=== PATIENT | male | born 1980 | race Caucasian/White ===

== ENCOUNTER 2017-06-15 12:05 | Emergency (ER) | payer OTHER ==
[2017-06-15 12:48] VITALS: BP 133/79; PULSE 82; RESP 18; TEMP 98.6
[2017-06-15] MEDS ORDERED: IBUPROFEN 600 MG TAB PO STA (13:15)
--- NOTE | 2017-06-15 13:50 | XR ---
EXAM TYPE: LUMBAR SPINE X RAY SERIES COMPARISON: NONE HISTORY: Back pain TECHNIQUE: Three views are submitted. FINDINGS: Alignment is anatomic. The pedicles are intact. The transverse processes are intact. There is no s pondylolysis or spondylolisthesis. Vertebral body height maintained. IMPRESSION: 1. No acute process. If there is concern for disc herniation correlate with MRI.
--- NOTE | 2017-06-15 13:52 | ED ---
Back Pain HPI - General Chief Complaint: Back Pain/Injury Stated Complaint: [facility] back pain Time Seen by Provider: 06/15/17 13:09 Source: patient Limitations: no limitations - History of Present Illness Initial Comments: 36-year-old male patient presented to emergency department today for evaluation of acute low back pain. Patient states that around 10:30 this morning he was at work in the back of a semi-he says he stepped out and landed hard on both of his feet. Patient states that since then he has been having pain in his lower back. He states the pain is sharp, states it radiates down his right leg. He denies any numbness or tingling to his lower extremities. Denies any loss of bowel or bladder control. Denies any saddle anesthesia. Patient denies any headache, neck pain, back pain, chest pain, shortness of breath, dizziness, weakness, abdominal pain, nausea, vomiting, or difficulties with bowel movements or urination. Patient has had lumbar laminectomy in April of last year. - Related Data Home Medications Medication Instructions Recorded Confirmed HYDROcodone/APAP 10-325MG [[place] 1 each PO Q6H 01/23/15 01/23/15 10] Previous Rx's Medication Instructions Recorded Ibuprofen [Motrin] 600 mg PO Q8HR PRN #20 tab 01/24/15 Allergies Allergy/AdvReac Type Severity Reaction Status Date / Time No Known Allergies Allergy Verified 06/15/17 12:48 Review of Systems ROS Statement: Those systems with pertinent positive or pertinent negative responses have been documented in the HPI. ROS Other: All systems not noted in ROS Statement are negative. Past Medical History Past Medical History: No Reported History History of Any Multi-Drug Resistant Organisms: None Reported Past Surgical History: No Surgical Hx Reported Additional Past Surgical History / Comment(s): discectomy May 04 2016 Past Psychological History: No Psychological Hx Reported Smoking Status: Current every day smoker Past Alcohol Use History: None Reported Past Drug Use History: None Reported General Exam Limitations: no limitations General appearance: alert, in no apparent distress Head exam: Present: atraumatic, normocephalic, normal inspection Eye exam: Present: normal appearance, PERRL, EOMI. Absent: scleral icterus, conjunctival injection, periorbital swelling ENT exam: Present: normal exam, mucous membranes moist Neck exam: Present: normal inspection, full ROM, other (Nontender, no step-off, no deformity to firm midline palpation of the posterior cervical spine. Full range of motion without pain or limitation.). Absent: tenderness, meningismus, lymphadenopathy Respiratory exam: Present: normal lung sounds bilaterally. Absent: respiratory distress, wheezes, rales, rhonchi, stridor Cardiovascular Exam: Present: regular rate, normal rhythm, normal heart sounds. Absent: systolic murmur, diastolic murmur, rubs, gallop, clicks GI/Abdominal exam: Present: soft, normal bowel sounds. Absent: distended, tenderness, guarding, rebound, rigid Extremities exam: Present: normal inspection, full ROM, normal capillary refill. Absent: tenderness, pedal edema, joint swelling, calf tenderness Back exam: Present: normal inspection, full ROM, other (Nontender, no step-off, no deformity to firm midline palpation of the thoracic and lumbar vertebrae. Full range of motion without pain or limitation.). Absent: tenderness Neurological exam: Present: alert, oriented X3, CN II-XII intact Psychiatric exam: Present: normal affect, normal mood Skin exam: Present: warm, dry, intact, normal color. Absent: rash Course Vital Signs 06/15/17 12:45 Temperature 98.6 F Pulse Rate 82 Respiratory 18 Rate Blood Pressure 133/79 O2 Sat by Pulse 96 Oximetry Medical Decision Making - Medical Decision Making 36-year-old male patient presented to emergency department today for complaints of acute low back pain after an injury at work. X-ray of the lumbar spine was obtained and showed no acute process. Physical exam is unremarkable. Patient was given ibuprofen here. Patient states he does have pain medication at home. Patient instructed to follow-up with his primary care physician or a spinal surgeon if he continues to have problems. Patient instructed to return here immediately for any new, worsening, or concerning symptoms. Patient verbalizes understanding and agrees with this plan. - Radiology Data Radiology results: report reviewed, image reviewed 3 views of the lumbar spine are shows that alignment is intact. The pedicles are intact. The transverse processes are intact. There is no spondylosis or spondylolisthesis. Vertebral body height is maintained. Impression by Dr. Mar shows no acute process. Disposition Clinical Impression: Acute low back pain Disposition: HOME SELF-CARE Condition: Good Instructions: Acute Low Back Pain (ED) Additional Instructions: Apply ice or heat to the painful areas. Take [id number] Tylenol Motrin for pain control. Follow up with primary care physician for recheck 1-2 days. Return immediately for any new, worsening, or concerning symptoms. Referrals: Molly Dasilva PAC [REFERRING] - 1-2 days Time of Disposition: 13:52
== END 2017-06-15 14:07 | disposition home or self-care (01) ==
LOC: EC 12:05
DX: M54.5 Low back pain (principal); M79.604 Pain in right leg; F17.200 Nicotine dependence, unspecified, uncomplicated; Z79.891 Long term (current) use of opiate analgesic; Z98.890 Other specified postprocedural states; W10.9XXA Fall (on) (from) unspecified stairs and steps, initial encounter; Y92.69 Other specified industrial and construction area as the place of occurrence of the external cause; Y99.0 Civilian activity done for income or pay
CPT/HCPCS: 72100; 99283

== ENCOUNTER 2017-10-26 14:10 | Emergency (ER) | payer OTHER ==
[2017-10-26 14:26] VITALS: BP 135/82; PULSE 78; RESP 18; TEMP 97.8
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
[2017-10-26] MEDS ORDERED: EMTRICITABINE/TENOFOVIR 200MG/300MG PO ONE (18:15)
[2017-10-26] MEDS ORDERED: RALTEGRAVIR POTASSIUM 400 MG TABLET PO STA (18:28)
[2017-10-26] MEDS ORDERED: EMTRICITABINE/TENOFOVIR 200MG/300MG PO STA (18:28)
[2017-10-26 20:42] LABS: Hepatitis C IgG Antibody Non-Reactive (Non-Reactive)
[2017-10-26 21:38] LABS: HIV AB P24 Non-Reactive (Non-Reactive); HIV P24 AG Non-Reactive (Non-Reactive)
[2017-10-27 12:06] LABS: Hepatitis B Surface AB- Quant 3.5 mIU/mL
== END 2017-10-26 15:06 | disposition home or self-care (01) ==
LOC: EC 14:10
DX: S69.91XA Unspecified injury of right wrist, hand and finger(s), initial encounter (principal); F17.200 Nicotine dependence, unspecified, uncomplicated; Z79.891 Long term (current) use of opiate analgesic; Z79.899 Other long term (current) drug therapy; W46.0XXA Contact with hypodermic needle, initial encounter; Y99.0 Civilian activity done for income or pay
CPT/HCPCS: 36415; 86706; 86803; 87340; 87390; 99282

== ENCOUNTER 2017-10-29 15:52 | Emergency (ER) | payer OTHER ==
[2017-10-29 15:55] VITALS: BP 129/73; PULSE 85; RESP 16; TEMP 98.7
[2017-10-29] MEDS ORDERED: HEPATITIS B IMMUNE GLOBULIN 1 ML VIAL IM ONE (15:59)
[2017-10-29] MEDS ORDERED: ONDANSETRON 4 MG ODT STARTER PACK 2 TAB BTL PO STA (16:13)
[2017-10-29] MEDS ORDERED: HEPATITIS B IMMUNE GLOBULIN 5 ML VIAL IM ONE (16:15)
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
== END 2017-10-29 16:58 | disposition home or self-care (01) ==
LOC: EC 15:52
DX: T14.90XA Injury, unspecified, initial encounter (principal); R11.0 Nausea; F17.200 Nicotine dependence, unspecified, uncomplicated; Z23 Encounter for immunization; Z79.891 Long term (current) use of opiate analgesic; W46.0XXA Contact with hypodermic needle, initial encounter; Y99.0 Civilian activity done for income or pay
CPT/HCPCS: 90371; 99283; 96372; S0119

== ENCOUNTER 2018-08-28 00:11 | Emergency (ER) | payer OTHER ==
[2018-08-28 00:41] VITALS: BP 135/81; PULSE 94; RESP 20; TEMP 98
[2018-08-28] MEDS ORDERED: KETOROLAC 60 MG/2 ML VIAL IM STA (00:48)
[2018-08-28] MEDS ORDERED: ORPHENADRINE 30 MG/ML 2 ML VIAL IM STA (00:48)
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
--- NOTE | 2018-08-28 01:17 | XR ---
EXAMINATION TYPE: XR lumbar spine 2 or 3V DATE OF EXAM: 08/28/2018 COMPARISON: 06/15/2017 HISTORY: Back pain TECHNIQUE: 3 views FINDINGS: Vertebra have normal alignment. Posterior elements are intact. Sacroiliac joints appear nor mal. There is no compression fracture. Disc spaces are fairly normal. IMPRESSION: Negative lumbar spine exam. No change.
== END 2018-08-28 01:54 | disposition home or self-care (01) ==
LOC: EC 00:11
DX: S39.012A Strain of muscle, fascia and tendon of lower back, initial encounter (principal); M54.16 Radiculopathy, lumbar region; F17.200 Nicotine dependence, unspecified, uncomplicated; Z98.890 Other specified postprocedural states; Z79.891 Long term (current) use of opiate analgesic; X50.1XXA Overexertion from prolonged static or awkward postures, initial encounter; Y93.72 Activity, wrestling; Y92.69 Other specified industrial and construction area as the place of occurrence of the external cause; Y99.0 Civilian activity done for income or pay
CPT/HCPCS: 72100; 99283; 96372 ×2; J2360; J1885

== ENCOUNTER 2019-01-25 22:35 | Emergency (ER) | payer BC, OTHER ==
[2019-01-25] MEDS ORDERED: ONDANSETRON 4 MG/2 ML VIAL IVP STA (23:01)
--- NOTE | 2019-01-25 23:08 | ED ---
General Adult HPI - General Chief complaint: Chest Pain Stated complaint: Chest Pain Time Seen by Provider: 01/25/19 22:52 Source: patient, family, RN notes reviewed Mode of arrival: ambulatory Limitations: no limitations - History of Present Illness Initial comments: Chief complaint history of present illness is a 38-year-old male to complaint of left-sided chest discomfort mild sweats and discomfort that radiated down his left arm. This started approximately 2 hours ago. It comes and goes. He also reports been eating a lot of antacid for the past 4 days and burping. - Related Data Home Medications Medication Instructions Recorded Confirmed No Known Home Medications 01/25/19 01/25/19 Allergies Allergy/AdvReac Type Severity Reaction Status Date / Time No Known Allergies Allergy Verified 01/25/19 22:50 Review of Systems ROS Statement: Those systems with pertinent positive or pertinent negative responses have been documented in the HPI. Review of systems. No headache or visual acuity changes on-again off-again chest discomfort and occasionally goes down his left arm. Sweats earlier but not now. Upset stomach. No back pain. Discomfort is not made better or worse by twisting turning deep breathing coughing or palpation. The patient's denying any neuro deficits. Denies any injuries. All systems reviewed. Past medical problems none. Surgeries back surgery for disc. The patient's family history significant for young man on his father's side with a heart disease. Patient denies ALLERGIES. Quit smoking 11 days ago. Drink alcohol socially. ROS Other: All systems not noted in ROS Statement are negative. Past Medical History Past Medical History: No Reported History History of Any Multi-Drug Resistant Organisms: None Reported Past Surgical History: Back Surgery Additional Past Surgical History / Comment(s): discectomy May 04 2016 Past Psychological History: No Psychological Hx Reported Smoking Status: Former smoker Past Alcohol Use History: None Reported Past Drug Use History: None Reported General Exam - General Exam Comments Initial Comments: General: The patient is awake and alert, patient was complaining of discomfort to the left side of his chest starting approximately 2 hours ago. Vital signs shows temperature 98.3 pulse 79 respiratory rate 18 pulse ox 97% room air blood pre ssure 142/89 Eye: Pupils are equal, round and reactive to light, extra-ocular movements are intact; there is normal conjunctiva bilaterally. No signs of icterus. Ears, nose, mouth and throat: There are moist mucous membranes and no oral lesions. Neck: The neck is supple, there is no tenderness. Cardiovascular: There is a regular rate and rhythm. No murmur, rub or gallop is appreciated. Pain not made better or worse by twisting turning deep breathing coughing or burping. Respiratory: Lungs are clear to auscultation, respirations are non-labored, breath sounds are equal. No wheezes, stridor, rales, or rhonchi. Gastrointestinal: Soft, non-distended, non-tender abdomen without masses or organomegaly noted. There is no rebound or guarding present. No CVA tenderness. Bowel sounds are unremarkable. Several days of upset stomach Back: There is no tenderness to palpation in the midline. There is no obvious deformity. No rashes noted. Musculoskeletal: Normal ROM, no tenderness, There is no pedal edema. There is no calf tenderness or swelling. Sensation intact. Pulses equal bilaterally 2+. Neurological: CN II-XII intact, There are no obvious motor or sensory deficits. Coordination appears grossly intact. Speech is normal. No focal or lateralizing findings Skin: Skin is warm and dry and no rashes or lesions are noted. Skin grafts noted to her right abdomen Psychiatric: Cooperative, appropriate mood & affect, normal judgment. Limitations: no limitations Course Vital Signs 01/25/19 01/26/19 22:37 00:28 Temperature 98.3 F 98.2 F Pulse Rate 79 80 Respiratory 18 18 Rate Blood Pressure 142/89 140/84 O2 Sat by Pulse 97 97 Oximetry EKG Findings - EKG Comments: EKG Findings:: EKG was done and reviewed at 2247 showing normal sinus rhythm no acute ST elevation no ectopy no ischemic changes. Rate 80 VT interval is 156 QRS 90 QT [address] Marshall Medical Decision Making - Medical Decision Making Rectal decision making; is a 38-year-old male with a complaint of discomfort and left-sided of his chest. He reports the pain radiates on the left arm on occasion. States he was sweaty at the time that it started. Feels some was sitting there. Complains of shortness of breath. He also reports been increasing his antacid for the past 4 days. The patient's labs show white count 10 hemoglobin 15 hematocrit 45 with a potassium of 3.8 and an INR 0.9. BUN 8 creatinine 0.82 with a GFR greater than 90. Glucose 1:15. Amylase lipase normal limits. ALT mildly elevated 89 CK 282 troponin normal. D-dimer normal at 0.26. Chest x-ray is done AP and lateral view and reviewed by radiologist his impression is no consolidation. No pneumothorax. No cardiomegaly. No acute fracture. Impression ; no acute findings. As read by Dr. Robin Patient states he get most relief with a GI cocktail. We did discuss atypical chest pain, GERD, reflux esophagitis. The patient was to be admitted for observation for chest discomfort but at this time he wants to go home on antacids. The patient states that the medication for the stomach help the most. Discomfort free. Patient was placed on omeprazole to be taken daily for 2 weeks. He is to follow-up with his family doctor or return emergency room as needed. Also advised to use antacids on a when necessary basis. One hour after meals and one hour before bedtime. Patient strongly advised return emergency room if he has any acute change in the character of his discomfort. We did discuss chest pain but the patient does not want to stay in hospital. - Lab Data Result diagrams: 01/25/19 23:16 01/25/19 23:16 Lab Results 01/25/19 01/25/19 01/25/19 Range/Units 23:16 23:16 23:16 WBC 10.3 (3.8-10.6) k/uL RBC 4.99 (4.30-5.90) m/uL Hgb 15.0 (13.0-17.5) gm/dL Hct 45.6 (39.0-53.0) % MCV 91.4 (80.0-100.0) fL MCH 30.0 (25.0-35.0) pg MCHC 32.8 (31.0-37.0) g/dL RDW 12.8 (11.5-15.5) % Plt Count 241 (150-450) k/uL Neutrophils % 53 % Lymphocytes % 34 % Monocytes % 6 % Eosinophils % 4 % Basophils % 1 % Neutrophils # 5.5 (1.3-7.7) k/uL Lymphocytes # 3.5 (1.0-4.8) k/uL Monocytes # 0.6 (0-1.0) k/uL Eosinophils # 0.4 (0-0.7) k/uL Basophils # 0.1 (0-0.2) k/uL PT (9.0-12.0) sec INR (<1.2) APTT (22.0-30.0) sec D-Dimer (<0.60) mg/L FEU Sodium 139 (137-145) mmol/L Potassium 3.8 (3.5-5.1) mmol/L Chloride 104 (98-107) mmol/L Carbon Dioxide 25 (22-30) mmol/L Anion Gap 10 mmol/L BUN 8 L (9-20) mg/dL Creatinine 0.82 (0.66-1.25) mg/dL Est GFR (CKD-EPI)AfAm >90 (>60 ml/min/1.73 sqM) Est GFR (CKD-EPI)NonAf >90 (>60 ml/min/1.73 sqM) Glucose 115 H (74-99) mg/dL Calcium 9.4 (8.4-10.2) mg/dL Total Bilirubin 0.4 (0.2-1.3) mg/dL AST 40 (17-59) U/L ALT 89 H (21-72) U/L Alkaline Phosphatase 95 (38-126) U/L Creatine Kinase 282 H (55-170) U/L CK-MB (CK-2) 0.6 (0.0-2.4) ng/mL Troponin I <0.012 (0.000-0.034) ng/mL Total Protein 6.6 (6.3-8.2) g/dL Albumin 4.1 (3.5-5.0) g/dL Amylase 47 (30-110) U/L Lipase 60 (23-300) U/L 01/25/19 Range/Units 23:16 WBC (3.8-10.6) k/uL RBC (4.30-5.90) m/uL Hgb (13.0-17.5) gm/dL Hct (39.0-53.0) % MCV (80.0-100.0) fL MCH (25.0-35.0) pg MCHC (31.0-37.0) g/dL RDW (11.5-15.5) % Plt Count (150-450) k/uL Neutrophils % % Lymphocytes % % Monocytes % % Eosinophils % % Basophils % % Neutrophils # (1.3-7.7) k/uL Lymphocytes # (1.0-4.8) k/uL Monocytes # (0-1.0) k/uL Eosinophils # (0-0.7) k/uL Basophils # (0-0.2) k/uL PT 10.2 (9.0-12.0) sec INR 0.9 (<1.2) APTT 25.1 (22.0-30.0) sec D-Dimer 0.26 (<0.60) mg/L FEU Sodium (137-145) mmol/L Potassium (3.5-5.1) mmol/L Chloride (98-107) mmol/L Carbon Dioxide (22-30) mmol/L Anion Gap mmol/L BUN (9-20) mg/dL Creatinine (0.66-1.25) mg/dL Est GFR (CKD-EPI)AfAm (>60 ml/min/1.73 sqM) Est GFR (CKD-EPI)NonAf (>60 ml/min/1.73 sqM) Glucose (74-99) mg/dL Calcium (8.4-10.2) mg/dL Total Bilirubin (0.2-1.3) mg/dL AST (17-59) U/L ALT (21-72) U/L Alkaline Phosphatase (38-126) U/L Creatine Kinase (55-170) U/L CK-MB (CK-2) (0.0-2.4) ng/mL Troponin I (0.000-0.034) ng/mL Total Protein (6.3-8.2) g/dL Albumin (3.5-5.0) g/dL Amylase (30-110) U/L Lipase (23-300) U/L Disposition Clinical Impression: GERD with esophagitis Disposition: HOME SELF-CARE Condition: Fair Instructions (If sedation given, give patient instructions): Diet for Stomach Ulcers and Gastritis (ED), Gastroesophageal Reflux Disease (ED) Is patient prescribed a controlled substance at d/c from ED?: No Referrals: None,Stated [Primary Care Provider] - 1-2 days Time of Disposition: 01:24
[2019-01-25 23:29] LABS: Basophils # (A) 0.1 k/uL (0-0.2); Basophils % (A) 1 %; Eosinophils # (A) 0.4 k/uL (0-0.7); Eosinophils % (A) 4 %; HCT 45.6 % (39.0-53.0); Lymphocytes # (A) 3.5 k/uL (1.0-4.8); Lymphocytes % (A) 34 %; MCHC 32.8 g/dL (31.0-37.0); MCV 91.4 fL (80.0-100.0); Mean Platelet Volume 6.7; Monocytes # (A) 0.6 k/uL (0-1.0); Monocytes % (A) 6 %; Neutrophils # (A) 5.5 k/uL (1.3-7.7); Neutrophils % (A) 53 %; Platelet Count 241 k/uL (150-450); RBC 4.99 m/uL (4.30-5.90); RDW 12.8 % (11.5-15.5); WBC 10.3 k/uL (3.8-10.6)
[2019-01-25 23:38] LABS: ALT 89 U/L (21-72); AST 40 U/L (17-59); Albumin 4.1 g/dL (3.5-5.0); Alkaline Phosphatase 95 U/L (38-126); Amylase 47 U/L (30-110); Anion Gap 10 mmol/L; Blood Urea Nitrogen 8 mg/dL (9-20); Calcium 9.4 mg/dL (8.4-10.2); Carbon Dioxide 25 mmol/L (22-30); Chloride 104 mmol/L (98-107); Creatine Kinase 282 U/L (55-170); Glucose 115 mg/dL (74-99); Lipase 60 U/L (23-300); Potassium 3.8 mmol/L (3.5-5.1); Sodium 139 mmol/L (137-145); Total Bilirubin 0.4 mg/dL (0.2-1.3); Total Protein 6.6 g/dL (6.3-8.2)
--- NOTE | 2019-01-25 23:39 | XR ---
EXAM: XR Chest, 2 Views CLINICAL HISTORY: ITS.REASON XR Reason: Left-sided chest pain TECHNIQUE: Frontal and lateral views of the chest. COMPARISON: No relevant prior studies available. FINDINGS: Lungs: Unremarkable. No consolidation. Pleural space: Unremarkable. No pneumothorax. Heart: Unremarkable. No cardiomegaly. Mediastinum: Unremarkable. Bones/joints: No acute fracture. IMPRESSION: No acute findings.
[2019-01-25 23:43] LABS: D-Dimer 0.26 mg/L FEU (<0.60); INR 0.9 (<1.2); Partial Thromboplastin Time 25.1 sec (22.0-30.0); Prothrombin Time 10.2 sec (9.0-12.0)
[2019-01-26 00:17] LABS: Creatine Kinase MB 0.6 ng/mL (0.0-2.4); Troponin I <0.012 ng/mL (0.000-0.034)
[2019-01-26] MEDS ORDERED: MAG HYDROX/AL HYDROX/SIMETH 30 ML, HYOSCYAMINE ELIXIR 10 ML, CIMETIDINE HCL 300 MG, LID... PO STA ×4 (00:57)
[2019-01-26 01:36] VITALS: BP 149/79; PULSE 79; RESP 20; TEMP 97
== END 2019-01-26 01:36 | disposition home or self-care (01) ==
LOC: EC 22:35
DX: K21.0 Gastro-esophageal reflux disease with esophagitis (principal); Z87.891 Personal history of nicotine dependence
CPT/HCPCS: 36415; 93005; 85379; 80053; 82150; 82550; 82553; 83690; 84484; 85025; 85610; 85730; 71046; 99285; 96374; J2405

== ENCOUNTER → 2019-07-21 | Outpatient (CLI) | payer BC ==
--- NOTE | 2019-07-21 10:54 | MR ---
EXAMINATION TYPE: MR lumbar spine wo con DATE OF EXAM: 07/21/2019 COMPARISON: Radiograph 08/28/2018 HISTORY: 38-year-old male lumbar pain, HX of surgery TECHNIQUE: Multiplanar, multisequence images of the lumbar spine were acquired. FINDINGS: Vertebral body heights are preserved and alignment is maintained. Prominent red marrow hyperplasia. Prominent epidural fat mid to lower lumbar spine. Scattered Modic type II fatty endplate change mid to lower lumbar spine most prominent at L5-S1 level . No prevertebral or paravertebral soft tissue abnormality. Facet arthropathy mid to lower lumbar spine. Mild multilevel degenerative disc disease with variable disc desiccation, mild disc height loss, and bulging discs. Posterior annular fissures are present from L3 through S1 levels. Conus medullaris is normal. Axial images at L3-L4 levels a right paracentral disc protrusion effacing anterolateral thecal sac, b ilateral neural foramina are patent. Axial images at L4-L5 level shows central disc protrusion minimally effacing anterior thecal sac and mild facet degenerative changes. Axial images at L5-S1 level to moderate broad disc bulge with right paracentral disc protrusion compo nent. Spinal canal is preserved. There is moderate bilateral neural foraminal narrowing. IMPRESSION: Some multilevel degenerative changes most prominent mid to lower lumbar spine as detailed above.
== END ==
LOC: RADMRIMAIN 06:38
PROVIDERS: ATTEND Internal Medicine
DX: M51.17 Intervertebral disc disorders with radiculopathy, lumbosacral region (principal); M47.896 Other spondylosis, lumbar region
CPT/HCPCS: 72148

== ENCOUNTER 2023-02-17 19:29 | Observation (INO) | payer BC, OTHER ==
[2023-02-17] MEDS ORDERED: ASPIRIN 81 MG PO STA (20:05)
[2023-02-17] MEDS ORDERED: MORPHINE SULFATE 4 MG/ML SYRINGE IV STA (20:05)
--- NOTE | 2023-02-17 20:05 | ED ---
Chest Pain HPI - General Chief Complaint: Chest Pain Stated Complaint: Chest pain Time Seen by Provider: 02/17/23 19:40 Source: patient Mode of arrival: ambulatory Limitations: no limitations - History of Present Illness Initial Comments: 42-year-old male with recent diagnosis of high cholesterol, hypertension, diabetes who presents to the emergency department reporting chest pain. States that he began having pain around 5:30 PM. Denies any provocative factors. Pain is located over the left chest wall and radiates into his left arm. He was given a prescription for nitro by his primary care physician. States he took one of these and it did alleviate his pain from a 7 out of 10 to a 5 out of 10. He has no known coronary disease. He was recently diagnosed with diabetes and hypertension. His primary care physician did set him up to have a echo and stress test performed however the patient has had to have these completed. He denies any lower extremity swelling. No ripping or tearing sensation to his back. No calf pain. No history of DVT or PE. No other alleviating, precipitating or modifying factors - Related Data Home Medications Medication Instructions Recorded Confirmed Aspirin EC [Ecotrin Low Dose] 81 mg PO DAILY 02/17/23 02/17/23 Semaglutide [Ozempic] 0.25 mg SQ TH 02/17/23 02/17/23 lisinopriL [Prinivil] 20 mg PO DAILY 02/17/23 02/17/23 Previous Rx's Medication Instructions Recorded Acetaminophen Tab [Tylenol] 650 mg PO Q6HR PRN tab 02/19/23 Atorvastatin [Lipitor] 80 mg PO DAILY #90 tab 02/19/23 Clopidogrel [Plavix] 75 mg PO DAILY #90 tab 02/19/23 Metoprolol Tartrate [Lopressor] 25 mg PO BID #60 tab 02/19/23 Nicotine 21Mg/24Hr Patch [Habitrol] 1 patch TRANSDERM DAILY #30 patch 02/19/23 Nitroglycerin Sl Tabs [Nitrostat] 0.4 mg SUBLINGUAL Q5M PRN #25 tab 02/19/23 Omeprazole Magnesium [PriLOSEC OTC] 20 mg PO DAILY #30 tab 02/19/23 Allergies Allergy/AdvReac Type Severity Reaction Status Date / Time No Known Allergies Allergy Verified 02/17/23 20:41 Review of Systems ROS Statement: Those systems with pertinent positive or pertinent negative responses have been documented in the HPI. ROS Other: All systems not noted in ROS Statement are negative. EKG Findings - EKG Comments: EKG Findings:: EKG as 1935 demonstrates sinus rhythm with a rate of 98. NJ interval 136. QRS 110. QTC of 385. No acute ST segment elevation. No reciprocal changes. Repeat EKG at 1953 demonstrates inverted T-wave in lead 3. No ST segment elevation in 2 contiguous leads. V2 slightly elevated. NJ interval 156. QRS 101. QTC of 395. Past Medical History Past Medical History: Diabetes Mellitus, Hypertension History of Any Multi-Drug Resistant Organisms: None Reported Past Surgical History: Back Surgery Additional Past Surgical History / Comment(s): discectomy May 04 2016 Past Psychological History: No Psychological Hx Reported Past Alcohol Use History: None Reported Past Drug Use History: None Reported General Exam Limitations: no limitations General appearance: alert, in no apparent distress Head exam: Present: atraumatic, normocephalic, normal inspection Eye exam: Present: normal appearance, PERRL, EOMI. Absent: scleral icterus, conjunctival injection, periorbital swelling ENT exam: Present: normal exam, mucous membranes moist Neck exam: Present: normal inspection. Absent: tenderness, meningismus, lymphadenopathy Respiratory exam: Present: normal lung sounds bilaterally. Absent: respiratory distress, wheezes, rales, rhonchi, stridor Cardiovascular Exam: Present: regular rate, normal rhythm, normal heart sounds. Absent: systolic murmur, diastolic murmur, rubs, gallop, clicks GI/Abdominal exam: Present: soft, normal bowel sounds. Absent: distended, tenderness, guarding, rebound, rigid Extremities exam: Present: normal inspection, full ROM, normal capillary refill. Absent: tenderness, pedal edema, joint swelling, calf tenderness Back exam: Present: normal inspection Neurological exam: Present: alert, oriented X3, CN II-XII intact Psychiatric exam: Present: normal affect, normal mood Skin exam: Present: warm, dry, intact, normal color. Absent: rash Course Vital Signs 02/17/23 02/17/23 02/17/23 19:30 19:57 20:32 Temperature 98.3 F Pulse Rate 100 98 Pulse Rate [ 97 Shrimp Peeler ] Respiratory 20 20 Rate Blood Pressure 190/85 122/79 O2 Sat by Pulse 95 96 Oximetry 02/17/23 02/17/23 22:00 23:00 Temperature Pulse Rate 90 93 Pulse Rate [ Shrimp Peeler ] Respiratory 18 18 Rate Blood Pressure 136/81 150/88 O2 Sat by Pulse 96 95 Oximetry Chest Pain MDM - MDM Was pt. sent in by a medical professional or institution (, [facility], [employer], urgent care, hospital, or assisted...) When possible be specific @ -no Did you speak to anyone other than the patient for history (EMS, parent, family, police, friend...)? What history was obtained from this source @ -no Did you review nursing and triage notes (agree or disagree)? Why? @ -I reviewed and agree with nursing and triage notes Were old charts reviewed (outside hosp., previous admission, EMS record, old EKG, old radiological studies, urgent care reports/EKG's, assisted records)? Report findings @ -no old charts were reviewed Differential Diagnosis (chest pain, altered mental status, abdominal pain women, abdominal pain men, vaginal bleeding, weakness, fever, dyspnea, syncope, headache, dizziness, GI bleed, back pain, seizure, CVA, palpatations, mental health, musculoskeletal)? @ -nstemi, stemi, angina, coronary vasospasm EKG interpreted by me (3pts min.). @ -yes X-rays interpreted by me (1pt min.). @ -yes CT interpreted by me (1pt min.). @ -None done U/S interpreted by me (1pt. min.). @ -None done What testing was considered but not performed or refused? (CT, X-rays, U/S, labs)? Why? @ -none What meds were considered but not given or refused? Why? @ -None Did you discuss the management of the patient with other professionals (professionals i.e. , [facility], [employer], lab, RT, psych nurse, family welfare social work professor, federal judge, teacher, police officer booking, trimming caser)? Give summary @ -admitting physician - dr hernandez Was smoking cessation discussed for >3mins.? @ -No Was critical care preformed (if so, how long)? @ -No Were there social determinants of health that impacted care today? How? (H omelessness, low income, unemployed, alcoholism, drug addiction, transportation, low edu. Level, literacy, decrease access to med. care, care home, rehab)? @ -No Was there de-escalation of care discussed even if they declined (Discuss DNR or withdrawal of care, Hospice)? DNR status @ -no What co-morbidities impacted this encounter? (DM, HTN, Smoking, COPD, CAD, Cancer, CVA, ARF, Chemo, Hep., AIDS, mental health diagnosis, sleep apnea, morbid obesity)? @ -obesity, htn, high cholesterol Was patient admitted / discharged? Hospital course, mention meds given and route, prescriptions, significant lab abnormalities, going to OR and other pertinent info. @ -Upon arrival patient was placed into room 5. A thorough history and physical exam was performed. 12-lead EKG was obtained. Patient placed on continuous pulse ox and cardiac monitoring. IV is established and laboratory studies are conducted. Chest x-rays performed. Patient was given morphine for pain control reports to further improvement in his pain to a 3 out of 10. Troponin is negative. Did recommend admission as the patient does have significant risk factors for coronary disease. Patient was agreeable to this. Called and spoke with Dr. hernandez who agree to admit the patient Undiagnosed new problem with uncertain prognosis? @ -yes Drug Therapy requiring intensive monitoring for toxicity (Heparin, Nitro, Insulin, Cardizem)? @ -No Were any procedures done? @ none Diagnosis/symptom? @ acute chest pain, suspected acs Acute, or Chronic, or Acute on Chronic? @ -acute Uncomplicated (without systemic symptoms) or Complicated (systemic symptoms)? @ -complicated Side effects of treatment? @ -No Exacerbation, Progression, or Severe Exacerbation? @ -No Poses a threat to life or bodily function? How? (Chest pain, [place], [place], pneumonia, PE, COPD, DKA, ARF, appy, cholecystitis, CVA, Diverticulitis, Homicidal, Suicidal, threat to staff... and all critical care pts) @ -yes - high concern for acs Disposition Clinical Impression: Chest pain Disposition: ADMITTED IP TO THIS [facility] Condition: Stable Is patient prescribed a controlled substance at d/c from ED?: No Time of Disposition: 22:00 Decision to Admit Reason: Admit from EC Decision Date: 02/17/23 Decision Time: 22:00
[2023-02-17 20:55] LABS: Basophils # (A) 0.1 k/uL (0-0.2); Basophils % (A) 1 %; Eosinophils # (A) 0.3 k/uL (0-0.7); Eosinophils % (A) 3 %; HCT 45.2 % (39.0-53.0); HGB 15.9 gm/dL (13.0-17.5); Lymphocytes # (A) 4.2 k/uL (1.0-4.8); Lymphocytes % (A) 34 %; MCH 31.3 pg (25.0-35.0); MCHC 35.2 g/dL (31.0-37.0); Monocytes # (A) 0.7 k/uL (0-1.0); Monocytes % (A) 5 %; Neutrophils # (A) 6.7 k/uL (1.3-7.7); Neutrophils % (A) 55 %; Platelet Count 281 k/uL (150-450); RBC 5.08 m/uL (4.30-5.90); RDW 13.4 % (11.5-15.5); WBC 12.2 k/uL (3.8-10.6)
[2023-02-17 21:02] LABS: ALT 99 U/L (4-49); AST 54 U/L (17-59); African American GFR (CKD) >90 (>60 ml/min/1.73 sqM); Albumin 4.8 g/dL (3.5-5.0); Alkaline Phosphatase 109 U/L (38-126); Anion Gap 14 mmol/L; Blood Urea Nitrogen 12 mg/dL (9-20); Calcium 9.4 mg/dL (8.4-10.2); Carbon Dioxide 25 mmol/L (22-30); Chloride 97 mmol/L (98-107); Glucose 121 mg/dL (74-99); Lipase 104 U/L (23-300); Magnesium 1.8 mg/dL (1.6-2.3); Non-African American GFR(CKD) >90 (>60 ml/min/1.73 sqM); Potassium 4.2 mmol/L (3.5-5.1); Sodium 136 mmol/L (137-145); Total Bilirubin 0.5 mg/dL (0.2-1.3); Total Protein 7.7 g/dL (6.3-8.2)
[2023-02-17 21:06] LABS: Partial Thromboplastin Time 24.4 sec (22.0-30.0); Prothrombin Time 10.2 sec (9.0-12.0)
--- NOTE | 2023-02-17 21:09 | XR ---
EXAMINATION TYPE: XR chest 2V DATE OF EXAM: 02/17/2023 8:52 PM COMPARISON: Chest radiographs from 01/25/2019 TECHNIQUE: XR chest 2V Frontal and lateral views of the chest. CLINICAL INDICATION:Male, 42 years old with history of Chest Pain; FINDINGS: Lungs/Pleura: There is no evidence of pleural effusion, focal consolidation, or pneumothorax. Pulmonary vascularity: Unremarkable. Heart/mediastinum: Cardiomediastinal silhouette is unremarkable. Musculoskeletal: No acute osseous pathology. IMPRESSION: No acute cardiopulmonary disease/process.
[2023-02-17] MEDS ORDERED: NALOXONE 0.4 MG/ML 1 ML VIAL IV PRN (22:00)
[2023-02-17] MEDS ORDERED: NITROGLYCERIN OINT 1 INCH/GM PACKET TOPICAL STA (22:02)
[2023-02-17] MEDS ORDERED: NITROGLYCERIN SL TABS 0.4 MG TAB SUBLINGUAL PRN (23:13)
[2023-02-17] MEDS: ATORVASTATIN 40 MG TAB PO SCH (23:33)
[2023-02-18 05:14] LABS: Basophils # (A) 0.1 k/uL (0-0.2); Basophils % (A) 1 %; Eosinophils # (A) 0.4 k/uL (0-0.7); Eosinophils % (A) 3 %; HCT 45.3 % (39.0-53.0); HGB 15.4 gm/dL (13.0-17.5); Lymphocytes # (A) 4.3 k/uL (1.0-4.8); Lymphocytes % (A) 35 %; MCH 30.6 pg (25.0-35.0); MCV 89.9 fL (80.0-100.0); Mean Platelet Volume 7.9; Monocytes # (A) 0.6 k/uL (0-1.0); Monocytes % (A) 5 %; Neutrophils # (A) 6.5 k/uL (1.3-7.7); Neutrophils % (A) 54 %; Platelet Count 258 k/uL (150-450); RBC 5.04 m/uL (4.30-5.90); RDW 13.5 % (11.5-15.5)
[2023-02-18 05:35] LABS: African American GFR (CKD) >90 (>60 ml/min/1.73 sqM); Anion Gap 11 mmol/L; Blood Urea Nitrogen 15 mg/dL (9-20); Carbon Dioxide 27 mmol/L (22-30); Chloride 98 mmol/L (98-107); Glucose 169 mg/dL (74-99); Non-African American GFR(CKD) >90 (>60 ml/min/1.73 sqM); Potassium 4.2 mmol/L (3.5-5.1); Sodium 136 mmol/L (137-145)
[2023-02-18] MEDS: PANTOPRAZOLE 40 MG TABLET PO SCH (06:31)
[2023-02-18] MEDS ORDERED: ALPRAZolam 0.25 MG TAB PO PRN (08:06)
[2023-02-18] MEDS ORDERED: NITROGLYCERIN SL TABS 0.4 MG TAB SUBLINGUAL PRN ×2 (08:06→13:15)
[2023-02-18] MEDS ORDERED: ASPIRIN 325 MG TAB PO STA (08:06)
[2023-02-18] MEDS ORDERED: ATORVASTATIN 80 MG TAB PO STA (08:06)
[2023-02-18] MEDS ORDERED: ALPRAZolam 0.5 MG TAB PO PRN (08:06)
--- NOTE | 2023-02-18 08:12 | P.CRDCN ---
History of Present Illness Consult date: 02/18/23 History of present illness: History of Present Illness: The patient is a 42-year-old male with a known history of chronic tobacco use, family history of premature CAD who was recently diagnosed with hypertension, hyperlipidemia and diabetes who presented with symptoms of chest discomfort. He had an episode of chest discomfort yesterday, burning like, radiating to the left arm associated with mild diaphoresis and lasted for about 45 minutes. He has been having discomfort on and off but not as severe and not activity related. He is pain-free at the time of my evaluation. He is average in his exercise tolerance without any symptoms of chest discomfort. He has no PND, orthopnea or peripheral edema. He has no prior cardiac history but he was scheduled to undergo a stress test and an echo as an outpatient. In the emergency room his EKG showed no acute changes and his troponin were normal. He is pain-free at the time of my evaluation. Medications: Crestor 20 mg daily, Prinivil 20 mg daily, aspirin once a day, Prilosec,Ozempic Review of Systems: Respiratory: No history of asthma, bronchitis or recent cough. GI: No nausea or vomiting . No history of peptic ulcer disease. No recent GI bleed. : No hematuria or dysuria. Nervous System: No stroke or seizure. Physical Examination: 42-year-old male, alert and oriented no apparent distress, obese,Blood pressure 110/70, Heart rate 90 Head: Normocephalic. Eyes: Sclerae nonicteric. Neck: Good carotid upstroke, no bruit, no jugular venous distention. Lungs: Clear to auscultation. Heart: Regular rate and rhythm, S1-S2, no S3, no rub. No murmur. Abdomen: Soft nontender, positive bowel sounds no organomegaly. Extremities: No edema, intact distal pulses. Labs: WBC 12,000, potassium 4.2, BUN 15, creatinine 0.85. Troponin less than 0.012. Chest x-ray with no acute infiltrate. EKG: Sinus mechanism rate of [address]-T wave changes Impression: 1. Chest discomfort with no evidence of acute myocardial infarction, suggestive of angina factors in the patient with multiple risk factors 2. History of hypertension 3. History of hyperlipidemia 4. History of diabetes 5. Chronic tobacco use 6. Family history of premature CAD Plan: 1. Continue home medications 2. Obtain an echocardiogram with Doppler 3. I have recommended to proceed with cardiac catheterization, the risks and th e complications were discussed with the patient who is in full agreement and understanding 4. Depending on the results of the testing further recommendations will be made 5. Thank you for this consult we will follow with you Past Medical History Past Medical History: Diabetes Mellitus, Hypertension History of Any Multi-Drug Resistant Organisms: None Reported Past Surgical History: Back Surgery Additional Past Surgical History / Comment(s): discectomy May 04 2016 Past Psychological History: No Psychological Hx Reported Smoking Status: Current every day smoker Past Alcohol Use History: None Reported Past Drug Use History: None Reported Medications and Allergies Home Medications Medication Instructions Recorded Confirmed Type Aspirin EC [Ecotrin Low Dose] 81 mg PO DAILY 02/17/23 02/17/23 History Nitroglycerin Sl Tabs [Nitrostat] 0.4 mg SUBLINGUAL Q5M PRN 02/17/23 02/17/23 History Omeprazole Magnesium [PriLOSEC OTC] 20 mg PO DAILY 02/17/23 02/17/23 History Rosuvastatin [Crestor] 20 mg PO DAILY 02/17/23 02/17/23 History Semaglutide [Ozempic] 0.25 mg SQ TH 02/17/23 02/17/23 History lisinopriL [Prinivil] 20 mg PO DAILY 02/17/23 02/17/23 History Allergies Allergy/AdvReac Type Severity Reaction Status Date / Time No Known Allergies Allergy Verified 02/17/23 20:41 Physical Exam Vitals: Vital Signs Temp Pulse Pulse Resp BP BP Pulse Ox 02/18/23 02:00 98 F 102 H 17 110/73 91 L 02/17/23 23:00 93 18 150/88 95 02/17/23 22:00 90 18 136/81 96 02/17/23 20:32 98 20 122/79 96 02/17/23 19:57 97 02/17/23 19:30 98.3 F 100 20 190/85 95 Intake and Output 02/17/23 02/18/23 02/18/23 22:59 06:59 14:59 Other: # Voids 2 Weight 117.934 kg 117.934 kg Results 02/18/23 04:40 02/18/23 04:40 Cardiac Enzymes 02/17/23 02/17/2323 Range/Units 19:50 19:50 00:12 AST 54 (17-59) U/L Troponin I <0.012 <0.012 (0.000-0.034) ng/mL 02/18/23 Range/Units 04:40 AST (17-59) U/L Troponin I <0.012 (0.000-0.034) ng/mL Coagulation 02/17/23 Range/Units 19:50 PT 10.2 (9.0-12.0) sec APTT 24.4 (22.0-30.0) sec CBC 02/17/23 02/18/23 Range/Units 19:50 04:40 WBC 12.2 H 12.0 H (3.8-10.6) k/uL RBC 5.08 5.04 (4.30-5.90) m/uL Hgb 15.9 15.4 (13.0-17.5) gm/dL Hct 45.2 45.3 (39.0-53.0) % Plt Count 281 258 (150-450) k/uL Comprehensive Metabolic Panel 02/17/23 02/18/23 Range/Units 19:50 04:40 Sodium 136 L 136 L (137-145) mmol/L Potassium 4.2 4.2 (3.5-5.1) mmol/L Chloride 97 L 98 (98-107) mmol/L Carbon Dioxide 25 27 (22-30) mmol/L BUN 12 15 (9-20) mg/dL Creatinine 0.76 0.85 (0.66-1.25) mg/dL Glucose 121 H 169 H (74-99) mg/dL Calcium 9.4 9.0 (8.4-10.2) mg/dL AST 54 (17-59) U/L ALT 99 H (4-49) U/L Alkaline Phosphatase 109 (38-126) U/L Total Protein 7.7 (6.3-8.2) g/dL Albumin 4.8 (3.5-5.0) g/dL Current Medications Generic Name Dose Route Start Last Admin Trade Name Freq PRN Reason Stop Dose Admin Aspirin 81 mg 02/18/23 09:00 Aspirin 81 Mg PO DAILY DOLORES Atorvastatin Calcium 40 mg 02/17/23 23:15 05/03/23 23:33 Atorvastatin 40 Mg Tab PO 40 mg DAILY COUNT INCLUDES THE [facility] Administration Famotidine 20 mg 02/18/23 09:00 Famotidine 20 Mg/2 Ml Vial IV Q12HR COUNT INCLUDES THE [facility] Heparin Sodium (Porcine) 5,000 unit 02/18/23 09:00 Heparin Sodium,Porcine/Pf 5,000 Unit/0.5 Ml Syringe SQ Q12HR COUNT INCLUDES THE [facility] Lisinopril 20 mg 02/18/23 09:00 Lisinopril 20 Mg Tab PO DAILY COUNT INCLUDES THE [facility] Naloxone HCl 0.2 mg 02/17/23 22:00 Naloxone 0.4 Mg/Ml 1 Ml Vial IV Q2M PRN Opioid Reversal Nitroglycerin 0.4 mg 02/17/23 23:13 Nitroglycerin Sl Tabs 0.4 Mg Tab SUBLINGUAL Q5M PRN Chest Pain Non-Formulary Medication 0.25 mg 02/18/23 09:00 Semaglutide [Ozempic] SQ TH COUNT INCLUDES THE [facility] Pantoprazole Sodium 40 mg 02/18/23 07:30 02/18/23 06:31 Pantoprazole 40 Mg Tablet PO 40 mg AC-BRKFST COUNT INCLUDES THE [facility] Administration Intake and Output 02/17/23 02/18/23 02/18/23 22:59 06:59 14:59 Other: # Voids 2 Weight 117.934 kg 117.934 kg 02/18/23 04:40 02/18/23 04:40
[2023-02-18] MEDS: lisinopriL 20 MG TAB PO SCH (08:59)
[2023-02-18] MEDS: ATORVASTATIN 40 MG TAB PO SCH (08:59)
[2023-02-18] MEDS: ASPIRIN 81 MG PO SCH (09:00)
[2023-02-18] MEDS: HEPARIN SODIUM,PORCINE/PF 5,000 UNIT/0.5 ML SYRINGE SQ SCH ×2 (09:00→20:04)
[2023-02-18] MEDS ORDERED: FAMOTIDINE 20 MG/2 ML VIAL IV SCH (09:00)
[2023-02-18] MEDS ORDERED: NON FORMULARY DRUG (Semaglutide [Ozempic] 0.25 MG/0.2 ML Each) SQ SCH (09:00)
[2023-02-18] MEDS ORDERED: ACETAMINOPHEN TAB 325 MG TAB PO PRN (10:36)
[2023-02-18] MEDS ORDERED: IV FLUID CONTINUATION 900 ML IV ONE (11:29)
[2023-02-18] MEDS: MIDAZOLAM 2 MG/2 ML VIAL IV ONE ×2 (12:06→12:11)
[2023-02-18] MEDS ORDERED: fentaNYL (PF) 50 MCG/ML 2 ML AMP IV ONE (12:08)
[2023-02-18] MEDS ORDERED: LIDOCAINE 1% INJ 10MG/ML (5 ML VIAL-PF) SQ ONE ×2 (12:11→12:12)
[2023-02-18] MEDS ORDERED: MIDAZOLAM 2 MG/2 ML VIAL IV ONE (12:13)
[2023-02-18] MEDS ORDERED: VERAPAMIL SYRINGE (5 MG/10 ML) INTRAARTER ONE (12:17)
[2023-02-18] MEDS ORDERED: HYDROmorphone 0.5 MG/0.5 ML SYRINGE IVP ONE (12:35)
[2023-02-18] MEDS ORDERED: IOPAMIDOL-370 100ML BTL INJ ONE (12:47)
[2023-02-18] MEDS ORDERED: NITROGLYCERIN 1000MCG/10ML SYRINGE INTRAARTER ONE (13:00)
[2023-02-18] MEDS ORDERED: CLOPIDOGREL 75 MG TAB PO ONE (13:04)
[2023-02-18] MEDS ORDERED: IOPAMIDOL-370 200ML BTL INJ ONE (13:06)
--- NOTE | 2023-02-18 13:08 | CC ---
CARDIAC CATHETERIZATION REPORT INDICATION: Unstable angina. PROCEDURE NOTE: After obtaining informed consent, left heart catheterization and coronary angiogram were performed via the right radial artery using standard Luz catheters. The patient tolerated the procedure well without any obvious immediate complications. Left ventricular hemodynamics were obtained using right Luz catheter. The patient received moderate conscious sedation. Total sedation time was 17 minutes. I obtained right radial artery access using Seldinger technique. A 6-Ukrainian sheath was placed. Catheters and wires were floated into the ascending aorta under fluoroscopic guidance. The patient received verapamil and heparin per protocol. FINDINGS: 1. Hemodynamics: Left ventricular end-diastolic pressure is 18 mm. There is no significant gradient across the aortic valve. 2. Left Ventriculogram: Left ventriculogram is not performed. 3. Angiographic Data: a.Right Coronary Artery: Right coronary artery is a codominant vessel and is free of stenosis. Left main coronary artery is a normal-sized vessel and is free of significant stenosis. Divides into left anterior descending coronary artery and circumflex coronary artery. LAD and its branches are free of significant stenosis. Very distal diagonal branch has a focal area of stenosis. The circumflex coronary artery has focal 70% proximal stenosis. CONCLUSION: 70% stenosis involving the circumflex coronary artery. PLAN: Angiographic data was reviewed by Dr. Kirby, the on-call neurologist who will proceed with angioplasty of the circumflex coronary artery. MMODL / IJN: [id number] /
[2023-02-18] MEDS ORDERED: ATROPINE SULFATE 0.1 MG/ML 10ML SYRINGE IV PRN (13:15)
[2023-02-18] MEDS ORDERED: DEXTROSE 50% SYRINGE 50 ML IVP PRN ×2 (13:15)
[2023-02-18] MEDS ORDERED: RX INFO: IV CONTRAST WAS GIVEN 1 EACH MISC MISCELLANE PRN (13:15)
[2023-02-18] MEDS ORDERED: SODIUM CHLORIDE 0.9% 1,000 ML in EMPTY BAG 1 BAG IV SCH (13:15)
[2023-02-18] MEDS ORDERED: ZOLPIDEM 5 MG TAB PO PRN (13:15)
[2023-02-18] MEDS ORDERED: MAG HYDROX/AL HYDROX/SIMETH 30 ML CUP PO PRN (13:15)
[2023-02-18] MEDS ORDERED: ONDANSETRON 4 MG/2 ML VIAL IVP ONE (13:19)
--- NOTE | 2023-02-18 13:21 | P.PCN ---
Date of Procedure: 02/18/23 Operative Findings: PERCUTANEOUS CORONARY INTERVENTION Performing physician Mg Kirby M.D. Procedure Performed: 1. Successful stenting of the proximal LCx using 2.75 x 15 mm Xience drug- eluting stent with an excellent angiographic results with adjunctive use of IVUS Indication: Unstable angina Approach: Right radial artery Complications: None Level of Sedation: Moderate with a sedation length of 30 minutes Procedure Discussion: After diagnostic heart catheterization was performed by Dr. Vela and after reviewing the angiogram which revealed severe disease involving the proximal LCx was identified more on the cranial view. We decided to pursue with an intervention. Anticoagulation was initiated using heparin with continuous ACT monitoring. Subsequently I did engage the left main using JL 3.5 guiding catheter. I did wire the left circumflex using a run-through wire. Intravascular ultrasound was performed and showed a diameter of the LCx around 2.75-3 mm. I predilated using 2.5 m balloon before I deployed 2.75 x 15 mm stent where the stent was positioned under fluoroscopy guidance and deployed under 12 anne for 20 seconds. Postdilatation using 3. millimeters noncompliant balloon was performed and final angiogram showed excellent angiographic results. Postprocedure Management: 1. Dual antiplatelet therapy with aspirin and Plavix for 12 months 2. Aggressive cholesterol control 3. Risk factors modification
[2023-02-18 14:51] VITALS: BMI 38.4
--- NOTE | 2023-02-18 15:55 | P.HPIM ---
History of Present Illness H&P Date: 02/18/23 . This is a 42-year-old male who presented to the emergency department with reports of chest pain. Patient reported left chest wall pain that was radiating down his left arm that was waxing and waning although persistent and did discuss with his primary care provider who gave him nitro and took a nitro which did alleviate his pain somewhat although continued to have discomfort and came to the emergency department for evaluation. Patient does follow with Dr. Gilliland in the outpatient setting in [place] with a past medical history of diabetes and new hypertension along with chronic back pain. Patient reports he does smoke tobacco and occasionally drinks although denies any illicit drug use. Patient is obese with significant family medical history of coronary artery disease. EKG showed a normal EKG with heart rate of 94 sinus rhythm. Chest x- ray showed no acute cardiopulmonary process and patient was admitted under observation with cardiology on consult. Patient reports he does take Ozempic subcutaneous once weekly for the diabetes and is unsure of what his hemoglobin A1c is. Labs revealed negative troponins 3, lipase is 104, BNP was less than 11, other electrolytes and CBC within normal limits other than a white count of 12.2 most likely reactive. Patient is afebrile with no reports of shortness of breath. Review Of Systems: Constitutional: No fever, no chills, no night sweats. No weight change. No weakness, fatigue or lethargy. No daytime sleepiness. EENT: No headache. No blurred vision or double vision, no loss of vision. No loss of Hearing, no ringing in the ears, no dizziness. No nasal drainage or congestion. No epistaxis. No sore throat. Lungs: No shortness of breath, cough, no sputum production. No wheezing. Cardiovascular: No chest pain, no lower extremity edema. No palpitations. No paroxysmal nocturnal dyspnea. No orthopnea. No lightheadedness or dizziness. No syncopal episodes. Abdominal: No abdominal pain. No nausea, vomiting. No diarrhea. No constipation. No bloody or tarry stools.. No loss of appetite. Genitourinary: No dysuria, increased frequency, urgency. No urinary retention. Musculoskeletal: No myalgias. No muscle weakness, no gait dysfunction, no frequent falls. No back pain. No neck pain. Integumentary: No wounds, no lesions. No rash or pruritus. No unusual bruising. No change in hair or nails. Neurologic: No aphasia. No facial droop. No change in mentation. No head injury. No headache. No paralysis. No paresthesia. Psychiatric: No depression. No anxiety. No mood swings. Endocrine: No abnormal blood sugars. No weight change. No excessive sweating or thirst. No cold intolerance. PHYSICAL EXAMINATION: GENERAL: The patient is alert and oriented x4, Well developed, well nourished. HEENT: Pupils are round and equally reacting to light. EOMI. no scleral icterus. No conjunctival pallor. Normocephalic, atraumatic. No pharyngeal erythema. No thyromegaly. CARDIOVASCULAR: S1 and S2 muffled PULMONARY: diminished breath sounds bilaterally with no wheezing or rhonchi noted. ABDOMEN: soft. Nontender on exam. obese. non-distended, normoactive bowel sounds. No palpable organomegaly. MUSCULOSKELETAL: No joint swelling or deformity. EXTREMITIES: No cyanosis, clubbing, or pedal edema. NEUROLOGICAL: Gross neurological examination did not reveal any focal deficits. Diffuse weakness SKIN: No rashes. Assessment: Chest pain, ruled out ACS with negative troponins 3, possible unstable angina New-onset hypertension Continued ongoing nicotine dependence Hyperlipidemia Diabetes mellitus, type II Obesity with a BMI of 38.4 Chronic back pain GI prophylaxis DVT prophylaxis Full code Plan: Recommend to continue with current medications and management with cardiology consulted and following. Patient continues to report chest pain that is radiating to the left arm and recommending cardiac catheterization along with a 2-D echo. patient continue on telemetry monitoring and currently nothing by mouth and will resume diet after catheterization and will also add sliding scale with Accu- Cheks as patient does have diabetes Will await report and discuss further with cardiology on treatment plan Patient with chronic back pain will adjust medications Encouraged increased activity as tolerated Patient does smoke and will provide nicotine patch The impression and plan of care has been dictated by Brooke Ferris, nurse practitioner as directed. Dr. Sallie MD I have performed a history and examination and MDM of this patient, discussed the same with the dictator, and agree with the dictator's assessment and plan as written ,documented as a scribe. Based on total visit time, I have performed more than 50% of the visit. Any additional findings or plans will be noted. Past Medical History Past Medical History: Diabetes Mellitus, Hypertension History of Any Multi-Drug Resistant Organisms: None Reported Past Surgical History: Back Surgery Additional Past Surgical History / Comment(s): discectomy May 04 2016 Past Psychological History: No Psychological Hx Reported Smoking Status: Current every day smoker Past Alcohol Use History: None Reported Past Drug Use History: None Reported Medications and Allergies Home Medications Medication Instructions Recorded Confirmed Type Aspirin EC [Ecotrin Low Dose] 81 mg PO DAILY 02/17/23 02/17/23 History Nitroglycerin Sl Tabs [Nitrostat] 0.4 mg SUBLINGUAL Q5M PRN 02/17/23 02/17/23 History Omeprazole Magnesium [PriLOSEC OTC] 20 mg PO DAILY 02/17/23 02/17/23 History Rosuvastatin [Crestor] 20 mg PO DAILY 02/17/23 02/17/23 History Semaglutide [Ozempic] 0.25 mg SQ TH 02/17/23 02/17/23 History lisinopriL [Prinivil] 20 mg PO DAILY 02/17/23 02/17/23 History Allergies Allergy/AdvReac Type Severity Reaction Status Date / Time No Known Allergies Allergy Verified 02/17/23 20:41 Physical Exam Vitals: Vital Signs Temp Pulse Pulse Resp BP BP Pulse Ox 02/18/23 07:00 97.7 F 83 16 123/71 95 02/18/23 02:00 98 F 102 H 17 110/73 91 L 02/17/23 23:00 93 18 150/88 95 02/17/23 22:00 90 18 136/81 96 02/17/23 20:32 98 20 122/79 96 02/17/23 19:57 97 02/17/23 19:30 98.3 F 100 20 190/85 95 Intake and Output 02/17/23 02/18/23 02/18/23 22:59 06:59 14:59 Other: # Voids 2 Weight 117.934 kg 117.934 kg Results CBC & Chem 7: 02/18/23 04:40 02/18/23 04:40 Labs: Abnormal Lab Results - Last 24 Hours (Table) 02/17/23 02/17/23 02/18/23 Range/Units 19:50 19:50 04:40 WBC 12.2 H 12.0 H (3.8-10.6) k/uL Sodium 136 L (137-145) mmol/L Chloride 97 L (98-107) mmol/L Glucose 121 H (74-99) mg/dL ALT 99 H (4-49) U/L 02/18/23 Range/Units 04:40 WBC (3.8-10.6) k/uL Sodium 136 L (137-145) mmol/L Chloride (98-107) mmol/L Glucose 169 H (74-99) mg/dL ALT (4-49) U/L
[2023-02-18] MEDS: NICOTINE 21MG/24HR PATCH TRANSDERM SCH (16:22)
[2023-02-18 17:31] LABS: Glucose,Whole Blood 185 mg/dL (70-110)
[2023-02-18] MEDS: INSULIN ASPART (NovoLOG) 100 UNIT/ML VIAL SQ SCH ×2 (19:15→21:05)
[2023-02-18] MEDS: FAMOTIDINE 20 MG TAB PO SCH (20:05)
[2023-02-18] MEDS: METOPROLOL TARTRATE 25 MG TAB PO SCH (20:05)
[2023-02-18] MEDS: HYDROcodone/APAP 5-325MG 1 EACH TAB PO PRN (20:05)
[2023-02-18 20:45] LABS: Glucose,Whole Blood 140 mg/dL (70-110)
[2023-02-19 03:13] VITALS: RESP 16
[2023-02-19 05:45] LABS: Glucose,Whole Blood 177 mg/dL (70-110)
[2023-02-19] MEDS: HYDROcodone/APAP 5-325MG 1 EACH TAB PO PRN (06:06)
[2023-02-19] MEDS: INSULIN ASPART (NovoLOG) 100 UNIT/ML VIAL SQ SCH ×2 (06:07→12:34)
[2023-02-19] MEDS ORDERED: HEPARIN SODIUM,PORCINE 2,500 UNIT in SODIUM CHLORIDE 0.9% 250 ML IRRIGATION PRN (07:00)
[2023-02-19] MEDS ORDERED: HEPARIN SODIUM,PORCINE 10,000 UNIT in SODIUM CHLORIDE 0.9% 1,000 ML IRRIGATION PRN (07:00)
--- NOTE | 2023-02-19 07:27 | CA ---
Transthoracic Echo Report Name: Carter Crabtree Age: 42 Gender: M : 1980 Exam Date: 02/18/2023 14:31 Exam Location: [facility] Ht (in): 69 Wt (lb): 280 Ordering Physician: Janice Garcia DO Attending/Referring Phys: [id number], Jose Flight Instructor Alverto Arellano, RD Procedure CPT: Indications: Chest Pain Cardiac Hx: HTN; High Chol,; D.M.; Obesity; Technical Quality: Technically difficult study Contrast 1: Lumason Total Dose (mL): 6 Contrast 2: Total Dose (mL): MEASUREMENTS (Male / Female) Normal Values 2D ECHO LV Diastolic Diameter PLAX 4.6 cm 4.2 - 5.9 / 3.9 - 5.3 cm LV Systolic Diameter PLAX 2.7 cm LV Fractional Shortening PLAX 41.2 % IVS Diastolic Thickness 1.4 cm 0.6 - 1.0 / 0.6 - 0.9 cm IVS Systolic Thickness 2.8 cm LVPW Diastolic Thickness 1.5 cm 0.6 - 1.0 / 0.6 - 0.9 cm LVPW Systolic Thickness 1.9 cm LV Relative Wall Thickness 0.6 RV Internal Dim ED PLAX 3.7 cm LVOT Diameter 2.4 cm LA Systolic Diameter LX 3.4 cm 3.0 - 4.0 / 2.7 - 3.8 cm Ascending Aorta Diameter 3.0 cm M-MODE Aortic Root Diameter MM 2.8 cm LA Systolic Diameter MM 3.9 cm LA Ao Ratio MM 1.4 MV E Point Septal Separation 1.2 cm AV Cusp Separation MM 2.1 cm DOPPLER AV Peak Velocity 134.4 cm/s AV Peak Gradient 7.2 mmHg MV Deceleration [place] 271.2 cm/s??? Mitral E Point Velocity 56.7 cm/s Mitral A Point Velocity 61.2 cm/s Mitral E to A Ratio 0.9 MV Deceleration Time 209.0 ms MV E' Velocity 8.2 cm/s Mitral E to MV E' Ratio 6.9 TR Peak Velocity 173.3 cm/s TR Peak Gradient 12.0 mmHg Right Ventricular Systolic Press 22.0 mmHg PV Peak Velocity 117.2 cm/s PV Peak Gradient 5.5 mmHg FINDINGS Left Ventricle Left ventricular ejection fraction is estimated at 55-60 %. Moderate left ventricular hypertrophy.left ventricular cavity size normal. Normal left ventricular diastolic filling pattern. Right Ventricle Normal right ventricular size and function. Right Atrium Normal right atrial size. Left Atrium Normal left atrial size. Mitral Valve No mitral stenosis. mild mitral regurgitation.structurally normal mitral valve. Aortic Valve Trileaflet aortic valve. No aortic valve stenosis or regurgitation. Tricuspid Valve Mild tricuspid regurgitation.structurally normal tricuspid valve. Pulmonic Valve Pulmonic valve not well visualized. Pericardium Normal pericardium. No pericardial effusion. Aorta Normal size aortic root and proximal ascending aorta. CONCLUSIONS 1. Normal left ventricle size and systolic function 2. Mild mitral and tricuspid regurgitation Previewed by: Dr. Joaquin Carrion MD (Electronically Signed) Final Date: 19 Feb 2023 07:26
[2023-02-19 08:07] LABS: African American GFR (CKD) >90 (>60 ml/min/1.73 sqM); Non-African American GFR(CKD) >90 (>60 ml/min/1.73 sqM)
[2023-02-19] MEDS: ASPIRIN 81 MG PO SCH (08:36)
[2023-02-19] MEDS: PANTOPRAZOLE 40 MG TABLET PO SCH (08:36)
[2023-02-19] MEDS: FAMOTIDINE 20 MG TAB PO SCH (08:37)
[2023-02-19] MEDS: METOPROLOL TARTRATE 25 MG TAB PO SCH (08:38)
[2023-02-19] MEDS: lisinopriL 20 MG TAB PO SCH (08:38)
[2023-02-19] MEDS: NICOTINE 21MG/24HR PATCH TRANSDERM SCH (08:38)
[2023-02-19] MEDS: HEPARIN SODIUM,PORCINE/PF 5,000 UNIT/0.5 ML SYRINGE SQ SCH (08:40)
[2023-02-19] MEDS ORDERED: CLOPIDOGREL 75 MG TAB PO SCH (09:00)
[2023-02-19] MEDS ORDERED: ATORVASTATIN 80 MG TAB PO SCH (09:00)
[2023-02-19 09:45] VITALS: BP 109/68; PULSE 86; TEMP 97.4
--- NOTE | 2023-02-19 09:55 | P.PN ---
Subjective Progress Note Date: 02/19/23 History of Present Illness: The patient is a 42-year-old male with a known history of chronic tobacco use, family history of premature CAD who was recently diagnosed with hypertension, hyperlipidemia and diabetes who presented with symptoms of chest discomfort. He had an episode of chest discomfort yesterday, burning like, radiating to the left arm associated with mild diaphoresis and lasted for about 45 minutes. He has been having discomfort on and off but not as severe and not activity related. He is pain-free at the time of my evaluation. He is average in his exercise tolerance without any symptoms of chest discomfort. He has no PND, orthopnea or peripheral edema. He has no prior cardiac history but he was scheduled to undergo a stress test and an echo as an outpatient. In the emergency room his EKG showed no acute changes and his troponin were normal. He is pain-free at the time of my evaluation. Medications: Crestor 20 mg daily, Prinivil 20 mg daily, aspirin once a day, Prilosec,Ozempic 5/ Yesterday, patient underwent cardiac catheterization with Dr. Doty which revealed 70% stenosis in the circumflex. Patient subsequently underwent successful stenting of the proximal left circumflex with Dr. Kirby with anxiety and stress alluded stent. Patient on dual antiplatelet therapy with aspirin and Plavix for 12 months and aggressive cholesterol control. Also discussed with p atient need for smoking cessation. Patient states that he is still having some left-sided upper anterior chest pain. No other abnormal findings noted on the cardiac catheterization. Heart rate is 70s and 80s, blood pressure 109/68, pulse ox 94% on room air, afebrile. Repeat creatinine 0.78. Physical Examination: 42-year-old male, alert and oriented no apparent distress, obese Head: Normocephalic. Eyes: Sclerae nonicteric. Neck: Good carotid upstroke, no bruit, no jugular venous distention. Lungs: Clear to auscultation. Heart: Regular rate and rhythm, S1-S2, no S3, no rub. No murmur. Abdomen: Soft nontender, positive bowel sounds no organomegaly. Extremities: No edema, intact distal pulses. Impression: Chest discomfort with no evidence of acute myocardial infarction, suggestive of angina factors in the patient with multiple risk factors Coronary artery disease status post stent of the left circumflex History of hypertension History of hyperlipidemia History of diabetes Chronic tobacco use Family history of premature CAD Plan: Continue patient's current cardiac medications, prescriptions have been sent to his pharmacy. Discussed smoking cessation and need for compliance with medication regime. Patient is cleared from cardiology for discharge home and may follow-up in the office with Dr. Stan Doty in one week. Nurse practitioner note has been reviewed, I agree with the documented findings and plan of care. Patient was seen and examined. Objective - Vital Signs Vital signs: Vital Signs Temp 97.9 F 02/19/23 02:19 Pulse 70 02/19/23 02:19 Resp 16 02/19/23 02:19 BP 98/55 02/19/23 02:19 Pulse Ox 94 L 02/19/23 02:19 FiO2 Intake & Output 02/18/23 02/19/23 02/19/23 18:59 06:59 18:59 Intake Total 920 Balance 920 Weight 117.934 kg Intake: IV 200 Oral 720 Other: Voiding Method Toilet Toilet # Voids 1 3 - Labs CBC & Chem 7: 02/18/23 04:40 02/19/23 07:06 Labs: Abnormal Lab Results - Last 24 Hours (Table) 02/18/23 02/18/23 02/18/23 Range/Units 04:40 17:29 20:44 POC Glucose (mg/dL) 185 H 140 H (70-110) mg/dL Hemoglobin A1c 7.2 H (0.0-6.0) % 02/19/23 Range/Units 05:44 POC Glucose (mg/dL) 177 H (70-110) mg/dL Hemoglobin A1c (0.0-6.0) %
[2023-02-19 12:52] LABS: Glucose,Whole Blood 153 mg/dL (70-110)
--- NOTE | 2023-02-21 13:33 | P.DS ---
Providers Date of admission: 02/17/23 22:00 Expected date of discharge: 02/19/23 Attending physician: Juan Estevez Consults: 02/17/23 22:00 Consult Physician Urgent Consulting Provider: Jerry Falcon Consult Reason/Comments: acute chest pain, possible acs Do you want consulting provider notified?: Yes 02/18/23 13:15 Consult Physician Routine Consulting Provider: Jerry Falcon Consult Reason/Comments: Post Interventional Patient Do you want consulting provider notified?: Already Contacted Primary care physician: Will Gilliland Hospital Course: Final diagnosis Chest pain, ruled out ACS with negative troponins 3, possible unstable angina Coronary artery disease, status post stenting to the circumflex Hypertension Continued ongoing nicotine dependence Hyperlipidemia Diabetes mellitus, type II Obesity with a BMI of 38.4 Chronic back pain GI prophylaxis DVT prophylaxis Full code Discharge disposition Patient is being discharged in a stable condition with guarded prognosis to home . Patient will follow-up with Dr. Gilliland in [place] in the outpatient setting upon discharge. Total time taken is greater than 35 minutes. Hospital course This is a 42-year-old male who was recently admitted with chest pain and evaluated by cardiology. Patient underwent cardiac catheterization requiring stenting to the circumflex. Cardiology also recommending medical management and modified risk factors. Patient has been cleared by cardiology with close outpatient follow-up. Please refer to cardiology notes for further HPI. Currently no reports of chest pain, shortness of breath, or palpitations. Patient is afebrile. No reports of nausea or vomiting and patient is tolerating diet. Patient will be going home today. Physical exam: Gen: This is a 42-year-old male who is awake, alert and oriented 3, well- developed, well-nourished, morbidly obese HEENT: Head is atraumatic, normocephalic. Pupils equal, round. Sclerae is anic teric. NECK: Supple. No JVD. No lymphadenopathy. No thyromegaly. LUNGS: Clear to auscultation. No wheezes or rhonchi. No intercostal retractions. HEART: Regular rate and rhythm. No murmur. ABDOMEN: Soft. Obese, Bowel sounds are present. No masses. No tenderness. EXTREMITIES: No pedal edema. No calf tenderness. NEUROLOGICAL: Patient is awake, alert and oriented x3. Cranial nerves 2 through 12 are grossly intact. Please refer to medication reconciliation sheet for a list of medications. The impression and plan of care has been dictated by Brooke Ferris, Nurse Practitioner as directed. Dr. Sallie MD I have performed a history and examination and MDM of this patient, discussed the same with the dictator, and agree with the dictator's assessment and plan as written ,documented as a scribe. Based on total visit time, I have performed more than 50% of the visit. Patient Condition at Discharge: Stable Plan - Discharge Summary New Discharge Prescriptions: New Atorvastatin [Lipitor] 80 mg PO DAILY #90 tab Clopidogrel [Plavix] 75 mg PO DAILY #90 tab Nicotine 21Mg/24Hr Patch [Habitrol] 1 patch TRANSDERM DAILY #30 patch Metoprolol Tartrate [Lopressor] 25 mg PO BID #60 tab Acetaminophen Tab [Tylenol] 650 mg PO Q6HR PRN tab PRN Reason: Fever and/ or Mild Pain Continue lisinopriL [Prinivil] 20 mg PO DAILY Aspirin EC [Ecotrin Low Dose] 81 mg PO DAILY Semaglutide [Ozempic] 0.25 mg SQ TH Nitroglycerin Sl Tabs [Nitrostat] 0.4 mg SUBLINGUAL Q5M PRN #25 tab PRN Reason: Chest Pain Omeprazole Magnesium [PriLOSEC OTC] 20 mg PO DAILY #30 tab Discontinued Rosuvastatin [Crestor] 20 mg PO DAILY Discharge Medication List Aspirin EC [Ecotrin Low Dose] 81 mg PO DAILY 02/17/23 [History] Semaglutide [Ozempic] 0.25 mg SQ TH 02/17/23 [History] lisinopriL [Prinivil] 20 mg PO DAILY 02/17/23 [History] Acetaminophen Tab [Tylenol] 650 mg PO Q6HR PRN tab 02/19/23 [Rx] Atorvastatin [Lipitor] 80 mg PO DAILY #90 tab 02/19/23 [Rx] Clopidogrel [Plavix] 75 mg PO DAILY #90 tab 02/19/23 [Rx] Metoprolol Tartrate [Lopressor] 25 mg PO BID #60 tab 02/19/23 [Rx] Nicotine 21Mg/24Hr Patch [Habitrol] 1 patch TRANSDERM DAILY #30 patch 02/19/23 [Rx] Nitroglycerin Sl Tabs [Nitrostat] 0.4 mg SUBLINGUAL Q5M PRN #25 tab 02/19/23 [Rx] Omeprazole Magnesium [PriLOSEC OTC] 20 mg PO DAILY #30 tab 02/19/23 [Rx] Follow up Appointment(s)/Referral(s): Will Gilliland MD [Primary Care Provider] - 1-2 days Dexter Doty MD [STAFF PHYSICIAN] - 03/01/23 3:00 pm Activity/Diet/Wound Care/Special Instructions: Activity Limited until follow-up Follow-up with primary care provider on discharge Follow-up cardiology as instructed Continue taking medications as prescribed Discharge Disposition: HOME SELF-CARE
[2023-02-23 20:11] LABS: Glucose,Whole Blood 196 mg/dL (70-110)
== END 2023-02-19 13:06 | disposition home or self-care (01) ==
LOC: EC 19:29 → 6NMEDSUR 22:00
PROVIDERS: ADMIT Hospitalist; ATTEND Hospitalist
DX: I25.110 Atherosclerotic heart disease of native coronary artery with unstable angina pectoris (principal); Z95.5 Presence of coronary angioplasty implant and graft; I10 Essential (primary) hypertension; E78.5 Hyperlipidemia, unspecified; E11.9 Type 2 diabetes mellitus without complications; E66.9 Obesity, unspecified; Z68.38 Body mass index [BMI] 38.0-38.9, adult; F17.200 Nicotine dependence, unspecified, uncomplicated; G89.29 Other chronic pain; M54.9 Dorsalgia, unspecified; Z79.84 Long term (current) use of oral hypoglycemic drugs; Z79.82 Long term (current) use of aspirin; Z79.899 Other long term (current) drug therapy
CPT/HCPCS: 96375; 96374; 99285; 36415; 93005; 93306; 92978; 93458; 83880; 80053; 80048; 82565; 83690; 83735; 84484 ×2; 85025 ×2; 85610; 85730; 83036; 71046; G0378 ×3; C1769 ×3; C9600; C1887; C1894; C1725 ×2; C1753; C1874; S4990 ×2; J2250; J2270; J2405; J2001; J3010; J1644 ×2; J1170; Q9967 ×2

== ENCOUNTER 2023-03-20 14:07 | Emergency (ER) | payer BC ==
[2023-03-20] MEDS ORDERED: SODIUM CHLORIDE 0.9% 1,000 ML IV STA (14:56)
[2023-03-20] MEDS ORDERED: KETOROLAC 15 MG/ML 1 ML VIAL IVP STA (14:56)
[2023-03-20] MEDS ORDERED: MAG HYDROX/AL HYDROX/SIMETH 30 ML, HYOSCYAMINE ELIXIR 10 ML, LIDOCAINE 2% GLYDO JELLY 1... PO STA ×3 (14:57)
--- NOTE | 2023-03-20 15:43 | ED ---
Abdominal Pain HPI - General Chief Complaint: Abdominal Pain Stated Complaint: DYSPESIA-BLOATING Time Seen by Provider: 03/20/23 14:38 Source: patient, RN notes reviewed Mode of arrival: ambulatory Limitations: no limitations - History of Present Illness Initial Comments: This is a 42-year-old male who presents to the emergency department for abdominal pain. Patient states that this has been occurring intermittently over the last 2 weeks. This is primarily in the right upper quadrant region. States that this is causing him to belch more frequently with a foul taste in his mouth. Also reports abdominal bloating. Denies any nausea, vomiting, diarrhea, or constipation. He went to urgent care earlier today, and was instructed to come to the emergency department for further evaluation of his gallbladder. He does already take omeprazole daily, and has done so for many years. He was on Pepcid at one point for 3 days when this first started, which he states was helpful, however the prescription was only for 3 days and he has not taken it si nce. Denies any fevers, chills, sore throat, cough, dyspnea, chest pain, palpitations, nausea, vomiting, diarrhea, back pain, or headaches. MD Complaint: abdominal pain Onset/Timin -: week(s) Location: RUQ - Related Data Home Medications Medication Instructions Recorded Confirmed Aspirin EC [Ecotrin Low Dose] 81 mg PO DAILY 02/17/23 02/17/23 Semaglutide [Ozempic] 0.25 mg SQ TH 02/17/23 02/17/23 lisinopriL [Prinivil] 20 mg PO DAILY 02/17/23 02/17/23 Previous Rx's Medication Instructions Recorded Acetaminophen Tab [Tylenol] 650 mg PO Q6HR PRN tab 02/19/23 Atorvastatin [Lipitor] 80 mg PO DAILY #90 tab 02/19/23 Clopidogrel [Plavix] 75 mg PO DAILY #90 tab 02/19/23 Metoprolol Tartrate [Lopressor] 25 mg PO BID #60 tab 02/19/23 Nicotine 21Mg/24Hr Patch [Habitrol] 1 patch TRANSDERM DAILY #30 patch 02/19/23 Nitroglycerin Sl Tabs [Nitrostat] 0.4 mg SUBLINGUAL Q5M PRN #25 tab 02/19/23 Omeprazole Magnesium [PriLOSEC OTC] 20 mg PO DAILY #30 tab 02/19/23 Famotidine 40 mg PO DAILY 14 Days #14 tablet 03/20/23 Allergies Allergy/AdvReac Type Severity Reaction Status Date / Time No Known Allergies Allergy Verified 03/20/23 14:12 Review of Systems ROS Statement: Those systems with pertinent positive or pertinent negative responses have been documented in the HPI. ROS Other: All systems not noted in ROS Statement are negative. Past Medical History Past Medical History: Diabetes Mellitus, Hypertension History of Any Multi-Drug Resistant Organisms: None Reported Past Surgical History: Back Surgery Additional Past Surgical History / Comment(s): discectomy May 04 2016 Past Psychological History: No Psychological Hx Reported Smoking Status: Never smoker Past Alcohol Use History: None Reported Past Drug Use History: None Reported General Exam Limitations: no limitations General appearance: alert, in no apparent distress Head exam: Present: atraumatic, normocephalic, normal inspection Respiratory exam: Present: normal lung sounds bilaterally. Absent: respiratory distress, wheezes, rales, rhonchi, stridor Cardiovascular Exam: Present: regular rate, normal rhythm, normal heart sounds. Absent: systolic murmur, diastolic murmur, rubs, gallop, clicks GI/Abdominal exam: Present: soft, tenderness (RUQ), normal bowel sounds. Absent: distended Neurological exam: Present: alert, oriented X3, CN II-XII intact Psychiatric exam: Present: normal affect, normal mood Skin exam: Present: warm, dry, intact, normal color. Absent: rash Course Vital Signs 03/20/23 03/20/23 03/20/23 14:10 17:05 18:42 Temperature 97.7 F 97.6 F Pulse Rate 83 79 70 Respiratory 20 20 18 Rate Blood Pressure 114/72 114/64 113/58 O2 Sat by Pulse 99 95 96 Oximetry Medical Decision Making - Medical Decision Making This is a 42-year-old male who presents to the emergency department for abdominal pain. Was pt. sent in by a medical professional or institution? @ -Urgent Care Did you speak to anyone other than the patient for history? @ -No Did you review nursing and triage notes? @ -Yes, and I agree, it is accurate with regards to the patient's symptoms. Were old charts reviewed? @ -No Differential Diagnosis? @ -Differential Abdominal Pain Men: Appendicitis, cholecystitis, diverticulosis, ischemic bowel, pancreatitis, hepatitis, UTI, gastroenteritis, AAA, incarcerated hernia, bowel obstruction, constipation, inflammatory bowel, hepatitis, peptic ulcer disease, splenic infarction, perforated viscus, testicular torsion, this is not meant to be an all-inclusive list EKG interpreted by me (3pts min.)? @ -Not obtained X-rays interpreted by me (1pt min.)? @ -Not obtained CT interpreted by me (1pt min.)? @ -Not obtained U/S interpreted by me (1pt. min.)? @ -Gallbladder ultrasound obtained. My interpretation identifies no evidence of gallbladder wall thickening or cholelithiasis. What testing was considered but not performed? (CT, X-rays, U/S, labs)? Why? @ -None What meds were considered but not given? Why? @ -None Did you discuss the management of the patient with other professionals? @ -No Did you reconcile home meds? @ -No Was smoking cessation discussed for >3mins.? @ -No Was critical care preformed (if so, how long)? @ -No Were there social determinants of health that impacted care today? How? (Ho melessness, low income, unemployed, alcoholism, drug addiction, transportation, low edu. Level, literacy, decrease access to med. care, correction, rehab)? @ -No Was there de-escalation of care discussed even if they declined? (Discuss DNR or withdrawal of care, Hospice)? @ -No What co-morbidities impacted this encounter? (DM, HTN, Smoking, COPD, CAD, Cancer, CVA, Hep., AIDS, mental health diagnosis, sleep apnea, morbid obesity)? @ -Morbid obesity, DM Was patient admitted / discharged? @ -Discharged. Lab work obtained and found to be relatively nonactionable aside from minor leukocytosis. Gallbladder ultrasound obtained. While the visualization was somewhat limited by the patient's body habitus, no evidence of cholelithiasis or acute cholecystitis was identified. Patient was given IV fluids, Toradol, and a GI cocktail with minor improvement in symptoms. Advised that he may have biliary dyskinesia, which cannot be identified on an ultrasound, in which case he would need a HIDA scan. This may also be related to a gastritis. Prescription for Pepcid provided, which the patient states has been helpful in the past. He is also advised to follow-up with his primary care provider for reevaluation of symptoms and to discuss a HIDA scan if they feel it is warranted for further evaluation. Undiagnosed new problem with uncertain prognosis? @ -None Drug Therapy requiring intensive monitoring for toxicity (Heparin, Nitro, Insulin, Cardizem)? @ -None Were any procedures done? @ -None Diagnosis/symptom? @ -RUQ pain Acute, or Chronic, or Acute on Chronic? @ -Acute Uncomplicated (without systemic symptoms) or Complicated (systemic symptoms)? @ -Uncomplicated Side effects of treatment? @ -None Exacerbation, Progression, or Severe Exacerbation] @ -Not applicable Poses a threat to life or bodily function? @ -No Return precautions reviewed in depth, the patient is instructed to return to the emergency department with any new, worsening, or concerning symptoms. Patient verbalized understanding. This case was discussed in detail with the attending ED physician, Dr. Brooks. Presentation, findings, and treatment plan discussed in detail as well. - Lab Data Result diagrams: 03/20/23 15:35 03/20/23 15:35 Lab Results 03/20/23 03/20/23 03/20/23 Range/Units 15:35 15:35 15:35 WBC 12.3 H (3.8-10.6) k/uL RBC 4.89 (4.30-5.90) m/uL Hgb 15.2 (13.0-17.5) gm/dL Hct 44.2 (39.0-53.0) % MCV 90.5 (80.0-100.0) fL MCH 31.1 (25.0-35.0) pg MCHC 34.3 (31.0-37.0) g/dL RDW 12.6 (11.5-15.5) % Plt Count 263 (150-450) k/uL MPV 7.6 Neutrophils % 65 % Lymphocytes % 23 % Monocytes % 7 % Eosinophils % 3 % Basophils % 0 % Neutrophils # 7.9 H (1.3-7.7) k/uL Lymphocytes # 2.8 (1.0-4.8) k/uL Monocytes # 0.9 (0-1.0) k/uL Eosinophils # 0.4 (0-0.7) k/uL Basophils # 0.0 (0-0.2) k/uL Sodium 138 (137-145) mmol/L Potassium 4.0 (3.5-5.1) mmol/L Chloride 101 (98-107) mmol/L Carbon Dioxide 26 (22-30) mmol/L Anion Gap 11 mmol/L BUN 12 (9-20) mg/dL Creatinine 0.94 (0.66-1.25) mg/dL Est GFR (CKD-EPI)AfAm >90 (>60 ml/min/1.73 sqM) Est GFR (CKD-EPI)NonAf >90 (>60 ml/min/1.73 sqM) Glucose 93 (74-99) mg/dL Plasma Lactic Acid Say 1.3 (0.7-2.0) mmol/L Calcium 9.0 (8.4-10.2) mg/dL Total Bilirubin 0.9 (0.2-1.3) mg/dL AST 50 (17-59) U/L ALT 89 H (4-49) U/L Alkaline Phosphatase 118 (38-126) U/L Total Protein 6.8 (6.3-8.2) g/dL Albumin 4.2 (3.5-5.0) g/dL Amylase 53 (30-110) U/L Lipase 95 (23-300) U/L - Radiology Data Radiology results: report reviewed, image reviewed Disposition Clinical Impression: Gastritis, RUQ pain Disposition: HOME SELF-CARE Instructions (If sedation given, give patient instructions): Gastritis (ED) Additional Instructions: Return to the emergency department with any new, worsening, or concerning symptoms. Take the famotidine daily for 2 weeks. Follow up with your primary care provider in 1-2 days and discuss a HIDA scan to evaluate how your gallbladder functions. Prescriptions: Famotidine 40 mg PO DAILY 14 Days #14 tablet Is patient prescribed a controlled substance at d/c from ED?: No Referrals: Will Gilliland MD [Primary Care Provider] - 1-2 days
[2023-03-20 15:49] LABS: Basophils % (A) 0 %; Eosinophils # (A) 0.4 k/uL (0-0.7); Eosinophils % (A) 3 %; HCT 44.2 % (39.0-53.0); HGB 15.2 gm/dL (13.0-17.5); Lymphocytes # (A) 2.8 k/uL (1.0-4.8); Lymphocytes % (A) 23 %; MCH 31.1 pg (25.0-35.0); MCHC 34.3 g/dL (31.0-37.0); MCV 90.5 fL (80.0-100.0); Mean Platelet Volume 7.6; Monocytes # (A) 0.9 k/uL (0-1.0); Monocytes % (A) 7 %; Neutrophils # (A) 7.9 k/uL (1.3-7.7); Neutrophils % (A) 65 %; Platelet Count 263 k/uL (150-450); RBC 4.89 m/uL (4.30-5.90); RDW 12.6 % (11.5-15.5); WBC 12.3 k/uL (3.8-10.6)
--- NOTE | 2023-03-20 16:54 | US ---
EXAMINATION TYPE: US gallbladder DATE OF EXAM: 03/20/2023 COMPARISON: NONE CLINICAL INDICATION: Male, 42 years old with history of RUQ pain; RUQ pain TECHNIQUE: Multiple sonographic images of the right upper quadrant are obtained. FINDINGS: EXAM MEASUREMENTS: Liver Length: 18.6 cm Gallbladder Wall: cm CBD: possibly 0.56 cm Right Kidney: 13.1 x 5.7 x 6.7 cm [employer]ENTICE NOTES: Limited due to body habitus Pancreas: Parts visualized appear wnl Liver: Difficult to penetrate. Heterogeneous Gallbladder: Not seen supine, appears wnl. Echoes seen are believed to be artifact Evidence for sonographic Thacker's sign: No CBD: Not well visualized Right Kidney: wnl IMPRESSION: Fatty liver.
[2023-03-20 17:12] LABS: ALT 89 U/L (4-49); AST 50 U/L (17-59); African American GFR (CKD) >90 (>60 ml/min/1.73 sqM); Albumin 4.2 g/dL (3.5-5.0); Alkaline Phosphatase 118 U/L (38-126); Amylase 53 U/L (30-110); Anion Gap 11 mmol/L; Blood Urea Nitrogen 12 mg/dL (9-20); Carbon Dioxide 26 mmol/L (22-30); Chloride 101 mmol/L (98-107); Glucose 93 mg/dL (74-99); Lipase 95 U/L (23-300); Non-African American GFR(CKD) >90 (>60 ml/min/1.73 sqM); Sodium 138 mmol/L (137-145); Total Bilirubin 0.9 mg/dL (0.2-1.3); Total Protein 6.8 g/dL (6.3-8.2)
[2023-03-20] MEDS ORDERED: FAMOTIDINE 20 MG/2 ML VIAL IV STA (17:39)
[2023-03-20 18:43] VITALS: BP 113/58; PULSE 70; RESP 18; TEMP 97.6
== END 2023-03-20 18:44 | disposition home or self-care (01) ==
LOC: EC 14:07
DX: K29.70 Gastritis, unspecified, without bleeding (principal); E11.9 Type 2 diabetes mellitus without complications; I10 Essential (primary) hypertension; Z79.82 Long term (current) use of aspirin; Z79.899 Other long term (current) drug therapy; Z79.85 Long-term (current) use of injectable non-insulin antidiabetic drugs
CPT/HCPCS: 99284 ×2; 96374 ×2; 96375 ×2; 96361 ×3; 36415; 80053; 82150; 83605; 83690; 85025; 76705; J1885

== ENCOUNTER → 2023-06-09 | Outpatient (CLI) | payer BC ==
[2023-06-09 16:33] LABS: ALT 65 U/L (10-49); AST 49 U/L (14-35); Chol/HDL Ratio 4.01 Ratio; LDL Cholesterol,Calculated 37.5 mg/dL (0.0-131.0)
== END | disposition home or self-care (01) ==
LOC: LABWHC1 10:35
PROVIDERS: ATTEND Internal Medicine Cardiovascular Disease
DX: E78.2 Mixed hyperlipidemia (principal)
CPT/HCPCS: 36415; 80061; 84450; 84460

== ENCOUNTER → 2023-08-31 | Outpatient (CLI) | payer BC ==
[2023-08-31 15:32] LABS: ALT 54 U/L (10-49); AST 38 U/L (14-35); Chol/HDL Ratio 4.14 Ratio; LDL Cholesterol,Calculated 48.9 mg/dL (0.0-131.0)
== END | disposition home or self-care (01) ==
LOC: LABWHC1 09:06
PROVIDERS: ATTEND Internal Medicine Cardiovascular Disease
DX: E78.2 Mixed hyperlipidemia (principal)
CPT/HCPCS: 36415; 80061; 84450; 84460

== ENCOUNTER 2023-12-26 18:12 | Emergency (ER) | payer BC ==
--- NOTE | 2023-12-26 18:50 | ED ---
General Adult HPI - General Chief complaint: Chest Pain Stated complaint: Chest Pains Time Seen by Provider: 12/26/23 18:20 Source: patient Mode of arrival: ambulatory Limitations: no limitations - History of Present Illness Initial comments: Dictation was produced using [employer] dictation software. please excuse any grammatical, word or spelling errors. Chief Complaint: 43-year-old male with headache, neck pain and chest pain History of Present Illness: Patient is a 43-year-old male he was having sexual intercourse with his significant other approximate 1 hour prior to arrival when all of a sudden during intercourse he started to have a splitting headache, neck pain and left lateral chest pain. Patient states that his headache is similar to headaches he has had in the past. He however also complains of associated neck pain. States that neck pain is to his left lateral soft tissues. Not worse with movement. Denies any numbness tingling paresthesias to the arms or legs. Patient also has a sharp pain in his left lateral chest. Patient states that he is often very sexually active has never had anything like this in the past. The ROS documented in this emergency department record has been reviewed and confirmed by me. Those systems with pertinent positive or negative responses have been documented in the HPI. All other systems are other negative and/or noncontributory. - Related Data Home Medications Medication Instructions Recorded Confirmed Aspirin EC [Ecotrin Low Dose] 81 mg PO DAILY 02/17/23 12/26/23 Tirzepatide [Mounjaro] 2.5 mg SQ WE 12/26/23 12/26/23 Previous Rx's Medication Instructions Recorded Atorvastatin [Lipitor] 80 mg PO DAILY #90 tab 02/19/23 Clopidogrel [Plavix] 75 mg PO DAILY #90 tab 02/19/23 Metoprolol Tartrate [Lopressor] 25 mg PO BID #60 tab 02/19/23 Nitroglycerin Sl Tabs [Nitrostat] 0.4 mg SUBLINGUAL Q5M PRN #25 tab 02/19/23 Omeprazole Magnesium [PriLOSEC OTC] 20 mg PO DAILY #30 tab 02/19/23 Allergies Allergy/AdvReac Type Severity Reaction Status Date / Time No Known Allergies Allergy Verified 12/26/23 19:26 Review of Systems ROS Statement: Those systems with pertinent positive or pertinent negative responses have been documented in the HPI. ROS Other: All systems not noted in ROS Statement are negative. Past Medical History Past Medical History: Diabetes Mellitus, Hypertension, Myocardial Infarction (RI) History of Any Multi-Drug Resistant Organisms: None Reported Past Surgical History: Back Surgery, Heart Catheterization With Stent Additional Past Surgical History / Comment(s): discectomy May 04 2016 Past Psychological History: No Psychological Hx Reported Smoking Status: Current every day smoker Past Alcohol Use History: None Reported Past Drug Use History: None Reported General Exam - General Exam Comments Initial Comments: PHYSICAL EXAM: General Impression: Alert and oriented x3, not in acute distress HEENT: Normocephalic atraumatic, extra-ocular movements intact, pupils equal and reactive to light bilaterally, mucous membranes moist. Cardiovascular: Heart regular rate and rhythm Chest: Able to complete full sentences, no retractions, no tachypnea Abdomen: abdomen soft, non-tender, non-distended, no organomegaly Musculoskeletal: Pulses present and equal in all extremities, no peripheral edema Motor: no focal deficits noted Neurological: CN II-XII grossly intact, no focal motor or sensory deficits noted Skin: Intact with no visualized rashes Psych: Normal affect and mood Limitations: no limitations Course Vital Signs 12/26/23 12/26/23 12/26/23 18:16 20:18 22:00 Temperature 98.4 F Pulse Rate 95 98 79 Respiratory 20 20 18 Rate Blood Pressure 112/78 111/78 145/86 O2 Sat by Pulse 99 97 99 Oximetry EKG Findings - EKG Comments: EKG Findings:: My EKG interpretation: Ventricular rate 85, sinus rhythm, parable 140, cures 91, QTc 388. No NH prolongation, no QTC prolongation, no ST or T-wave changes noted. Overall, this EKG is unremarkable Medical Decision Making - Medical Decision Making Was pt. sent in by a medical professional or institution (, PA, BLACK TOP MACHINE OPERATOR, urgent care, hospital, or jail...) When possible be specific @ -No Did you speak to anyone other than the patient for history (EMS, parent, family, police, friend...)? What history was obtained from this source @ -No Did you review nursing and triage notes (agree or disagree)? Why? @ -I reviewed and agree with nursing and triage notes Were old charts reviewed (outside hosp., previous admission, EMS record, old EKG, old radiological studies, urgent care reports/EKG's, jail records)? Report findings @ -No old charts were reviewed Differential Diagnosis (chest pain, altered mental status, abdominal pain women, abdominal pain men, vaginal bleeding, musculoskeletal, weakness, fever, dyspnea, syncope, headache, dizziness, GI bleed, back pain, seizure, CVA, palpatations, mental health)? @ -Differential Chest Pain: Stable Angina, Unstable Angina, STEMI, NSTEMI Aortic Dissection, Pneumothorax, Musculoskeletal, Esophageal Spasm GERD, Cholecystitis, Pancreatitis, Zoster, this is not meant to be an all-inclusive list. EKG interpreted by me (3pts min.). @ -See above X-rays interpreted by me (1pt min.). @ -Chest x-ray shows no acute processes CT interpreted by me (1pt min.). @ -CT scan of the brain and CT angiography of the head and neck are negative f or any acute processes U/S interpreted by me (1pt. min.). @ -None done What testing was considered but not performed or refused? (CT, X-rays, U/S, labs)? Why? @ -None What meds were considered but not given or refused? Why? @ -None Did you discuss the management of the patient with other professionals (professionals i.e. , PA, BLACK TOP MACHINE OPERATOR, lab, RT, psych nurse, social sciences professor, cafe aide, teacher, founder and chief technical officer, case preparer and liner)? Give summary @ -No Was smoking cessation discussed for >3mins.? @ -No Was critical care preformed (if so, how long)? @ -No Were there social determinants of health that impacted care today? How? (Homelessness, low income, unemployed, alcoholism, drug addiction, transportat ion, low edu. Level, literacy, decrease access to med. care, custodial, rehab)? @ -No Was there de-escalation of care discussed even if they declined (Discuss DNR or withdrawal of care, Hospice)? DNR status @ -No What co-morbidities impacted this encounter? (DM, HTN, Smoking, COPD, CAD, Cancer, CVA, ARF, Chemo, Hep., AIDS, mental health diagnosis, sleep apnea, morbid obesity)? @ -None Was patient admitted / discharged? Hospital course, mention meds given and route, prescriptions, significant lab abnormalities, going to OR and other pertinent info. @ -43-year-old male presents to the emergency department with chest pain and headache and also neck pain. Vital signs stable. Physical examination is relatively benign. CT angiography of the head and neck was obtained to rule out dissection given that he has a reproducible neck pain that occurred during sexual activity. Furthermore CT scan of the brain is negative. He presented within 6 hours of onset of symptoms. Chest x-ray is nonacute. Laboratory evaluation is unremarkable. Disposition options were discussed. Patient wanted to be discharged if his troponins were negative. Serial troponins are negative. Patient reevaluated at bedside 1:02 AM on to be stable to condition. Patient will be discharged. Advised follow-up with primary care doctor. Return precautions discussed. Undiagnosed new problem with uncertain prognosis? @ -No Drug Therapy requiring intensive monitoring for toxicity (Heparin, Nitro, Insulin, Cardizem)? @ -No Were any procedures done? @ -No Diagnosis/symptom? Acute, or Chronic, or Acute on Chronic? Uncomplicated (without systemic symptoms) or Complicated (systemic symptoms)? @ -Chest pain, headache, neck pain Side effects of treatment? @ -No Exacerbation, Progression, or Severe Exacerbation? @ -No Poses a threat to life or bodily function? How? (Chest pain, [place], RI, pneumonia, PE, COPD, DKA, ARF, appy, cholecystitis, CVA, Diverticulitis, Homicidal, Suicidal, threat to staff... and all critical care pts) @ -No - Lab Data Result diagrams: 12/26/23 19:33 12/26/23 19:33 Lab Results 12/26/23 12/26/23 12/26/23 Range/Units 19:33 19:33 19:33 WBC 10.7 H (3.8-10.6) k/uL RBC 5.23 (4.30-5.90) m/uL Hgb 16.6 (13.0-17.5) gm/dL Hct 47.5 (39.0-53.0) % MCV 90.8 (80.0-100.0) fL MCH 31.6 (25.0-35.0) pg MCHC 34.8 (31.0-37.0) g/dL RDW 12.7 (11.5-15.5) % Plt Count 225 (150-450) k/uL MPV 7.8 Neutrophils % 49 % Lymphocytes % 39 % Monocytes % 5 % Eosinophils % 4 % Basophils % 1 % Neutrophils # 5.2 (1.3-7.7) k/uL Lymphocytes # 4.2 (1.0-4.8) k/uL Monocytes # 0.5 (0-1.0) k/uL Eosinophils # 0.4 (0-0.7) k/uL Basophils # 0.1 (0-0.2) k/uL PT 10.4 (10.0-12.5) sec INR 0.9 (<1.2) APTT 23.7 (22.0-30.0) sec Sodium 140 (137-145) mmol/L Potassium 4.0 (3.5-5.1) mmol/L Chloride 102 (98-107) mmol/L Carbon Dioxide 27 (22-30) mmol/L Anion Gap 11 mmol/L BUN 8 L (9-20) mg/dL Creatinine 0.84 (0.66-1.25) mg/dL Est GFR (CKD-EPI)AfAm >90 (>60 ml/min/1.73 sqM) Est GFR (CKD-EPI)NonAf >90 (>60 ml/min/1.73 sqM) Glucose 162 H (74-99) mg/dL Calcium 9.7 (8.4-10.2) mg/dL Magnesium 1.8 (1.6-2.3) mg/dL Total Bilirubin 0.6 (0.2-1.3) mg/dL AST 51 (17-59) U/L ALT 111 H (4-49) U/L Alkaline Phosphatase 135 H (38-126) U/L Troponin I (0.000-0.034) ng/mL Total Protein 7.3 (6.3-8.2) g/dL Albumin 4.6 (3.5-5.0) g/dL 12/26/23 12/26/23 12/26/23 Range/Units 19:33 22:05 23:03 WBC (3.8-10.6) k/uL RBC (4.30-5.90) m/uL Hgb (13.0-17.5) gm/dL Hct (39.0-53.0) % MCV (80.0-100.0) fL MCH (25.0-35.0) pg MCHC (31.0-37.0) g/dL RDW (11.5-15.5) % Plt Count (150-450) k/uL MPV Neutrophils % % Lymphocytes % % Monocytes % % Eosinophils % % Basophils % % Neutrophils # (1.3-7.7) k/uL Lymphocytes # (1.0-4.8) k/uL Monocytes # (0-1.0) k/uL Eosinophils # (0-0.7) k/uL Basophils # (0-0.2) k/uL PT (10.0-12.5) sec INR (<1.2) APTT (22.0-30.0) sec Sodium (137-145) mmol/L Potassium (3.5-5.1) mmol/L Chloride (98-107) mmol/L Carbon Dioxide (22-30) mmol/L Anion Gap mmol/L BUN (9-20) mg/dL Creatinine (0.66-1.25) mg/dL Est GFR (CKD-EPI)AfAm (>60 ml/min/1.73 sqM) Est GFR (CKD-EPI)NonAf (>60 ml/min/1.73 sqM) Glucose (74-99) mg/dL Calcium (8.4-10.2) mg/dL Magnesium (1.6-2.3) mg/dL Total Bilirubin (0.2-1.3) mg/dL AST (17-59) U/L ALT (4-49) U/L Alkaline Phosphatase (38-126) U/L Troponin I <0.012 <0.012 <0.012 (0.000-0.034) ng/mL Total Protein (6.3-8.2) g/dL Albumin (3.5-5.0) g/dL Disposition Clinical Impression: Chest pain Disposition: HOME SELF-CARE Condition: Fair Instructions (If sedation given, give patient instructions): Chest Pain (ED) Is patient prescribed a controlled substance at d/c from ED?: No Referrals: Will Gilliland MD [Primary Care Provider] - 1-2 days Time of Disposition: 01:03
[2023-12-26 19:45] LABS: Basophils # (A) 0.1 k/uL (0-0.2); Basophils % (A) 1 %; Eosinophils # (A) 0.4 k/uL (0-0.7); Eosinophils % (A) 4 %; HCT 47.5 % (39.0-53.0); HGB 16.6 gm/dL (13.0-17.5); Lymphocytes # (A) 4.2 k/uL (1.0-4.8); Lymphocytes % (A) 39 %; MCH 31.6 pg (25.0-35.0); MCHC 34.8 g/dL (31.0-37.0); MCV 90.8 fL (80.0-100.0); Mean Platelet Volume 7.8; Monocytes # (A) 0.5 k/uL (0-1.0); Monocytes % (A) 5 %; Neutrophils # (A) 5.2 k/uL (1.3-7.7); Neutrophils % (A) 49 %; Platelet Count 225 k/uL (150-450); RBC 5.23 m/uL (4.30-5.90); RDW 12.7 % (11.5-15.5); WBC 10.7 k/uL (3.8-10.6)
[2023-12-26 19:55] LABS: INR 0.9 (<1.2); Partial Thromboplastin Time 23.7 sec (22.0-30.0); Prothrombin Time 10.4 sec (10.0-12.5)
[2023-12-26 20:13] LABS: ALT 111 U/L (4-49); AST 51 U/L (17-59); African American GFR (CKD) >90 (>60 ml/min/1.73 sqM); Albumin 4.6 g/dL (3.5-5.0); Alkaline Phosphatase 135 U/L (38-126); Anion Gap 11 mmol/L; Blood Urea Nitrogen 8 mg/dL (9-20); Calcium 9.7 mg/dL (8.4-10.2); Carbon Dioxide 27 mmol/L (22-30); Chloride 102 mmol/L (98-107); Glucose 162 mg/dL (74-99); Magnesium 1.8 mg/dL (1.6-2.3); Non-African American GFR(CKD) >90 (>60 ml/min/1.73 sqM); Sodium 140 mmol/L (137-145); Total Bilirubin 0.6 mg/dL (0.2-1.3); Total Protein 7.3 g/dL (6.3-8.2)
--- NOTE | 2023-12-26 20:17 | XR ---
EXAMINATION TYPE: XR chest 2V DATE OF EXAM: 12/26/2023 7:43 PM CLINICAL INDICATION:Male, 43 years old with history of Chest Pain; [facility] COMPARISON: 02/17/2023 TECHNIQUE: XR chest 2V. Frontal and lateral views of the chest.. FINDINGS: Lines/Tubes/Devices: No indwelling lines are seen. Heart/mediastinum: Heart size is normal. Mediastinum appears normal. Pulmonary vascularity: Not increased, Lungs/Pleura: There is no evidence of pleural effusion, focal consolidation, or pneumothorax. Simila r appearing mildly coarsened interstitial lung markings likely chronic changes. Musculoskeletal: No acute osseous abnormality demonstrated in the limits of the exam. Mild degenerat weston changes of the thoracic spine. Other findings: None. IMPRESSION: No acute cardiopulmonary abnormality.
--- NOTE | 2023-12-26 21:11 | CT ---
EXAMINATION TYPE: CT brain wo con CT DLP: 1185.6 mGycm, Automated exposure control for dose reduction was used. DATE OF EXAM: 12/26/2023 8:32 PM COMPARISON: None. CLINICAL INDICATION:Male, 43 years old with history of severe acute neck pain, syncope, dizziness TECHNIQUE: Brain: Axial CT images of the brain were obtained with coronal and sagittal reformats created and rev iewed. Contrast used: None. Oral contrast used: None. FINDINGS: Extra-axial spaces: No abnormal extra-axial fluid collections. Mildly prominent cisterna magna. Ventricular system: Within normal limits. Cerebral parenchyma: No increased attenuation to suggest acute intraparenchymal hemorrhage. The gra y-white matter interface appears maintained. No significant atrophy. White matter unremarkable by C T. Cerebellum: No acute abnormality. Mass effect: No evidence of mass effect or midline shift. Intracranial vasculature: Unremarkable Soft tissues: No acute or concerning abnormality. Visualized orbits: Orbital contents appear grossly intact. Calvarium/osseous structures: No evidence of calvarial fracture. Paranasal sinuses and mastoid air cells: Opacification of the right frontal sinus, frontoethmoidal re cess and anterior ethmoid air cell on the right likely chronic mucosal disease. Nasal septal deviatio n towards the right with small osseous spur. MRI is more sensitive for detecting acute processes such as infarct, and may be considered if clinica lly warranted. IMPRESSION: 1. No acute intracranial CT abnormality. 2. Chronic appearing right frontoethmoidal sinus disease.
--- NOTE | 2023-12-26 21:29 | CT ---
EXAMINATION TYPE: CT angio head neck DATE OF EXAM: 12/26/2023 8:59 PM COMPARISON: None. CLINICAL INDICATION:Male, 43 years old with history of severe acute neck pain; PHH, syncope, dizzines s TECHNIQUE: Axially acquired helical CT angiogram of the head and neck was obtained with contrast. Axi al images are supplemented with 3D reconstructions [facility] criteria used. Contrast used: 65cc mL of Isovue 370 with IV Contrast, Oral contrast used: None. CT DLP: 1033 mGycm, Automated exposure control for dose reduction was used. FINDINGS: CTA Neck: A 3 vessel aortic arch is shown without significant atherosclerotic disease. No dissection. Right carotid system: The common carotid is patent. There is no hemodynamically significant diameter stenosis, dissection, nor pseudoaneurysm present. Left carotid system: The common carotid is patent. Mild plaque at the proximal left ICA. There is no hemodynamically significant diameter stenosis, dissection, nor pseudoaneurysm present. Vertebral arteries: There is no significant atherosclerotic plaque at the origins of the vertebral ar teries. The vertebrals are then otherwise patent to the skull base. Left vertebral is slightly dominant. Other: Visualized neck soft tissues show no concerning abnormality. Cervical spine shows minor degene rative disc disease with mild anterior spurring C6-C7. Imaged portions of the lung apices show no inf iltrate or pneumothorax. CTA Head: Intracranial ICAs, bifurcations, ACAs, MCAs appear normally patent. Anterior communicating artery is unremarkable. The intracranial vertebral arteries enhance normally. Basilar artery is patent and unremarkable. Basi lar tip is unremarkable without evidence of aneurysm. Basilar supplies the left FORESTRY EXTENSION SPECIALIST which appears pat ent. The last branch on the right appears to be the superior cerebellar artery. There is a origin of the right posterior cerebral artery. No appreciable enhancing left posteri or communicating artery. No intracranial large vessel occlusion, hemodynamically significant stenosis, aneurysm, dissection, o r arteriovenous malformation is shown. The dural venous sinuses appear grossly patent without evidence of thrombosis. Right transverse sinus is dominant over the left. Other: Please refer to same-day CT head report.. IMPRESSION: CTA neck: Patent neck CTA. No acute abnormality is identified. CTA head: Patent head CTA. No acute abnormality is identified.
[2023-12-26] MEDS: KETOROLAC 15 MG/ML 1 ML VIAL IVP STA (21:50)
[2023-12-26] MEDS: ASPIRIN 81 MG PO STA (21:50)
[2023-12-26] MEDS: ONDANSETRON 4 MG/2 ML VIAL IVP STA (21:51)
[2023-12-26] MEDS: diphenhydrAMINE 50 MG/ML 1 ML VIAL IVP STA (21:51)
[2023-12-26] MEDS: SODIUM CHLORIDE 0.9% 1,000 ML IV STA (21:51)
[2023-12-27 01:33] VITALS: BP 133/78; PULSE 80; RESP 20; TEMP 98
== END 2023-12-27 01:18 | disposition home or self-care (01) ==
LOC: EC 18:12
DX: R07.89 Other chest pain (principal); R51.9 Headache, unspecified; M54.2 Cervicalgia; E11.9 Type 2 diabetes mellitus without complications; I10 Essential (primary) hypertension; I25.2 Old myocardial infarction; F17.200 Nicotine dependence, unspecified, uncomplicated; Z79.82 Long term (current) use of aspirin; Z79.85 Long-term (current) use of injectable non-insulin antidiabetic drugs; Z95.5 Presence of coronary angioplasty implant and graft
CPT/HCPCS: 36415; 93005; 80053; 83735; 84484; 85025; 85610; 85730; 71046; 70496; 70450; 70498; 99285; 96374; 96375 ×2; 96361; J1200; J2405; J1885; Q9967

== ENCOUNTER 2024-11-02 20:51 | Observation (INO) | payer BC ==
[2024-11-02 22:02] LABS: Basophils # (A) 0.1 k/uL (0-0.2); Basophils % (A) 1 %; Eosinophils # (A) 0.2 k/uL (0-0.7); Eosinophils % (A) 2 %; HCT 47.7 % (39.0-53.0); HGB 16.4 gm/dL (13.0-17.5); Lymphocytes # (A) 3.3 k/uL (1.0-4.8); Lymphocytes % (A) 40 %; MCH 30.9 pg (25.0-35.0); MCHC 34.5 g/dL (31.0-37.0); MCV 89.7 fL (80.0-100.0); Mean Platelet Volume 7.5; Monocytes # (A) 0.6 k/uL (0-1.0); Monocytes % (A) 8 %; Neutrophils # (A) 3.7 k/uL (1.3-7.7); Neutrophils % (A) 45 %; Platelet Count 187 k/uL (150-450); RBC 5.32 m/uL (4.30-5.90); RDW 13.1 % (11.5-15.5); WBC 8.2 k/uL (3.8-10.6)
[2024-11-02 22:07] LABS: ALT 107 U/L (4-49); AST 61 U/L (17-59); African American GFR (CKD) >90 (>60 ml/min/1.73 sqM); Albumin 4.3 g/dL (3.5-5.0); Alkaline Phosphatase 141 U/L (38-126); Anion Gap 10 mmol/L; Blood Urea Nitrogen 13 mg/dL (9-20); Calcium 9.3 mg/dL (8.4-10.2); Carbon Dioxide 24 mmol/L (22-30); Chloride 102 mmol/L (98-107); Glucose 198 mg/dL (74-99); Magnesium 1.8 mg/dL (1.6-2.3); Non-African American GFR(CKD) >90 (>60 ml/min/1.73 sqM); Potassium 3.9 mmol/L (3.5-5.1); Sodium 136 mmol/L (137-145); Total Bilirubin 0.9 mg/dL (0.2-1.3); Total Protein 6.9 g/dL (6.3-8.2)
--- NOTE | 2024-11-02 22:09 | ED ---
Chest Pain HPI - General Source: patient Mode of arrival: ambulatory Limitations: no limitations <Radha Colindres - Last Filed: 11/02/24 22:08> <Fuad Krause - Last Filed: 11/03/24 00:36> - General Chief Complaint: Chest Pain Stated Complaint: Chest Pain Time Seen by Provider: 11/02/24 22:08 - History of Present Illness Initial Comments: 44-year-old male presenting with chief complaint of chest pain. Located on the left side of the chest. Started earlier today. No alleviating or aggravating factors. Admits to cough and congestion. (Radha Colindres) - Related Data Home Medications Medication Instructions Recorded Confirmed Aspirin EC [Ecotrin Low Dose] 81 mg PO DAILY 02/17/23 12/26/23 Tirzepatide [Mounjaro] 2.5 mg SQ WE 12/26/23 12/26/23 Previous Rx's Medication Instructions Recorded Atorvastatin [Lipitor] 80 mg PO DAILY #90 tab 02/19/23 Clopidogrel [Plavix] 75 mg PO DAILY #90 tab 02/19/23 Metoprolol Tartrate [Lopressor] 25 mg PO BID #60 tab 02/19/23 Nitroglycerin Sl Tabs [Nitrostat] 0.4 mg SUBLINGUAL Q5M PRN #25 tab 02/19/23 Omeprazole Magnesium [PriLOSEC OTC] 20 mg PO DAILY #30 tab 02/19/23 Allergies Allergy/AdvReac Type Severity Reaction Status Date / Time No Known Allergies Allergy Verified 11/02/24 21:06 Review of Systems ROS Other: All systems not noted in ROS Statement are negative. <Radha Colindres - Last Filed: 11/02/24 22:08> ROS Other: All systems not noted in ROS Statement are negative. <Fuad Krause - Last Filed: 11/03/24 00:36> ROS Statement: Those systems with pertinent positive or pertinent negative responses have been documented in the HPI. EKG Findings - EKG Results: EKG: interpreted by ALYSIA CORONA, sinus rhythm ( rate 90 bpm), normal axis, normal ST/T - Blocks, [place], Hypertrophy, ST Abn: QRS axis and voltage: low voltage (<0.5 MV total QRS and <1.0 MV in each precordial lead) <Fuad Krause - Last Filed: 11/03/24 00:36> Past Medical History Past Medical History: Diabetes Mellitus, Hypertension History of Any Multi-Drug Resistant Organisms: None Reported Past Surgical History: Back Surgery Additional Past Surgical History / Comment(s): discectomy May 04 2016 Past Psychological History: No Psychological Hx Reported Smoking Status: Never smoker <Radha Colindres - Last Filed: 11/02/24 22:08> General Exam Limitations: no limitations <Radha Colindres - Last Filed: 11/02/24 22:08> - General Exam Comments Initial Comments: Visual Physical Exam Vital signs reviewed General: Well-appearing, nontoxic, no acute distress. Head: Normocephalic, atraumatic Eyes: PERRLA, EOMI ENT: Airway patent Chest: Nonlabored breathing Skin: No visual rash, normal skin tone Neuro: Alert and oriented 3 Musculoskeletal: No gross abnormalities (Radha Colindres) Course Vital Signs 11/02/24 21:02 Temperature 98.2 F Pulse Rate 94 Respiratory 22 Rate Blood Pressure 129/83 O2 Sat by Pulse 95 Oximetry Chest Pain MDM <Radha Colindres - Last Filed: 11/02/24 22:08> - MDM I performed the quick note portion of this visit, electronically signed Radha Colindres PA-C (Radha Colindres)
[2024-11-02 22:33] LABS: Partial Thromboplastin Time 23.4 sec (22.0-30.0); Prothrombin Time 10.9 sec (10.0-12.5)
[2024-11-02] MEDS ORDERED: NITROGLYCERIN SL TABS 0.4 MG TAB SUBLINGUAL PRN (23:53)
--- NOTE | 2024-11-03 00:46 | XR ---
EXAM: XR Chest, 2 Views CLINICAL HISTORY: ITS.REASON XR Reason: Chest Pain TECHNIQUE: Frontal and lateral views of the chest. COMPARISON: 12/26/23 FINDINGS: Lungs: Mild bibasilar opacities. Pleural space: Unremarkable. No pleural effusion or pneumothorax. Heart: Unremarkable. No cardiomegaly or pulmonary vascular congestion. Bones/joints: No acute fracture. No dislocation. IMPRESSION: Mild bibasilar opacities. Atelectasis favored over infiltrates. Correlate clinically.
[2024-11-03] MEDS: ASPIRIN 81 MG PO STA (02:41)
[2024-11-03] MEDS ORDERED: NITROGLYCERIN SL TABS 0.4 MG TAB SUBLINGUAL PRN ×2 (07:45→10:08)
[2024-11-03] MEDS ORDERED: ALPRAZolam 0.5 MG TAB PO PRN (07:45)
[2024-11-03] MEDS ORDERED: ALPRAZolam 0.25 MG TAB PO PRN (07:45)
[2024-11-03] MEDS: ASPIRIN 81 MG PO SCH (07:56)
[2024-11-03] MEDS: METOPROLOL TARTRATE 25 MG TAB PO SCH (08:10)
[2024-11-03] MEDS: ATORVASTATIN 80 MG TAB PO STA (08:10)
[2024-11-03] MEDS: ASPIRIN 325 MG TAB PO STA (08:10)
[2024-11-03] MEDS: DAPAGLIFLOZIN PROPANEDIOL 5 MG TABLET PO SCH (08:10)
[2024-11-03] MEDS: PANTOPRAZOLE 40 MG TABLET PO SCH (08:11)
[2024-11-03] MEDS: ATORVASTATIN 80 MG TAB PO SCH (08:12)
[2024-11-03] MEDS: SODIUM CHLORIDE 0.9% 1,000 ML in EMPTY BAG 1 BAG IV SCH ×2 (08:13→11:56)
[2024-11-03] MEDS: SODIUM CHLORIDE 0.9% 1,000 ML IV ONE (08:43)
[2024-11-03] MEDS: HEPARIN SODIUM,PORCINE (1 ML) 2,500 UNIT in SODIUM CHLORIDE 0.9% 250 ML IRRIGATION PRN (08:50)
[2024-11-03] MEDS: HEPARIN SODIUM,PORCINE 10,000 UNIT in SODIUM CHLORIDE 0.9% 1,000 ML IRRIGATION PRN (08:50)
[2024-11-03] MEDS ORDERED: CLOPIDOGREL 75 MG TAB PO SCH (09:00)
[2024-11-03] MEDS ORDERED: ASPIRIN 325 MG TAB PO SCH (09:00)
[2024-11-03 09:04] LABS: Chol/HDL Ratio 6.68 Ratio; HDL Cholesterol 19.3 mg/dL (40.00-60.00); VLDL Calculation 114.4 mg/dL (5.00-40.00)
[2024-11-03] MEDS: LIDOCAINE 1% INJ 10MG/ML (20 ML MDV) SQ ONE (09:13)
[2024-11-03] MEDS: MIDAZOLAM 2 MG/2 ML VIAL IVP ONE (09:13)
[2024-11-03] MEDS: fentaNYL (PF) 50 MCG/1 ML VIAL IVP ONE (09:13)
[2024-11-03 09:14] LABS: LDL Cholesterol,Direct Reflex 52.5 mg/dL (0.00-129.00)
[2024-11-03] MEDS: VERAPAMIL SYRINGE (5 MG/10 ML) INTRAARTER ONE (09:22)
[2024-11-03] MEDS: HEPARIN SODIUM 1,000 UN/ML (10ML VL) IVP ONE (09:23)
[2024-11-03] MEDS: CLOPIDOGREL 75 MG TAB PO ONE (09:37)
[2024-11-03] MEDS: IOPAMIDOL-370 100ML BTL INJ ONE ×2 (09:45→09:57)
[2024-11-03] MEDS: NITROGLYCERIN 1000MCG/10ML SYRINGE INTRACORON ONE (09:49)
[2024-11-03] MEDS ORDERED: ZOLPIDEM 5 MG TAB PO PRN (10:08)
[2024-11-03] MEDS ORDERED: RX INFO: IV CONTRAST WAS GIVEN 1 EACH MISC MISCELLANE PRN (10:08)
[2024-11-03] MEDS ORDERED: ATROPINE SULFATE 0.1 MG/ML 10ML SYRINGE IV PRN (10:08)
[2024-11-03] MEDS ORDERED: MAG HYDROX/AL HYDROX/SIMETH 30 ML CUP PO PRN (10:08)
[2024-11-03] MEDS: ONDANSETRON 4 MG/2 ML VIAL IVP PRN (10:13)
--- NOTE | 2024-11-03 10:16 | P.CARDCATH ---
Date of Procedure: 11/03/24 Description of Procedure: Cardiac Catheterization: The patient is a 44-year-old male with known history of hyperlipidemia, CAD who presented with symptoms of chest discomfort. He underwent stenting of the left circumflex in February 2023 and he has been complaining of discomfort for the last couple months similar to what he had before. In view of that he came into the emergency room. He had no evidence of electrocardiographic or enzymatic changes. Recommendations were made regarding cardiac catheterization, the risks and the complications were discussed with the patient who is in full understanding and agreement. Procedure Description: Patient was brought to label printer in fasting semi-sedated state after receiving Fentanyl and Benadryl achieiving moderate conscious sedated state. Using Xylocaine Anesthesia and modified Seldinger technique, a 6-Azerbaijani sheath was introduced in the right radial artery . Subsequently, selective coronary angiography was performed using a 5-Azerbaijani 3.5 bend Luz catheter. Multiple views of the coronary artery including hemiaxial views were obtained. The 5 Azerbaijani pigtail catheter was used to cross the aortic valve and LVEDP was calculated. PCI: After removing the catheter a 6 Azerbaijani CLS 3.5 guiding catheter was introduced in the system and after cannulating the left main a 0.014 BMW J-wire was positioned in the distal LAD. Subsequently a 2.5 x 12 mm trek balloon was advanced and 1 inflation at 8 anne was done. After removing the balloon a [place] eye IVUS catheter was introduced and images were obtained, it revealed mild calcification with a distal vessel measuring 3.0 mm in diameter and approximately 3.75 to 4 mm proximally. After removing the catheter a 2.75 x 18 mm Xience lucie point stent was advanced and deployed at 16 anne. After removing the balloon repeat IVUS imaging was obtained and subsequently a 3.5 x 12 mm NC trek balloon was advanced and 1 inflation proximally at 10 anne was done. After the last inflation the wire and the balloon was removed images were obtained and revealed stable successful stenting. Following that, catheter and sheath were removed. Hemostasis was obtained with deployment of vascular band . There was no immediate complication. Patient was returned to room in stable condition. Of note, the patient received a total of 7000 units of intravenous heparin as well as intra-arterial verapamil. He received an oral loading dose of clopidogrel. His ACT was followed. He had chest discomfort and EKG changes that resolved at the end of the procedure. There was no immediate complications. Findings: Left main: This is a large size vessel, bifurcating into LAD and left circumflex, left main has no obstructive disease. LAD: This is a large size vessel, giving rise to a moderately sized proximal diagonal branch after the diagonal branch and the first septal supervisor mending there was an 85% eccentric lesion in the LAD, the rest of the vessel has no high-grade stenosis Left circumflex: This is a large nondominant vessel giving rise to a large obtuse marginal branch. The stented segment in the left circumflex has mild intimal disease of 10 to 20% with no high-grade stenosis. RCA: This is a large dominant vessel, bifurcating distally to PDA and PLV, the right coronary artery and its branches have no obstructive disease. Left Ventriculogram: Not performed Hemodynamics: There was no gradient across aortic valve, LVEDP was 8-10 mmHg Conclusion: 1. Severe stenosis in the proximal mid segment of the LAD 2. Patent stent in the left circumflex 3. No significant disease in the RCA 4. Successful stenting of the proximal mid LAD with reduction of stenosis from 85% to less than 5% with IVUS imaging. The diagonal branch ostium was pinched but had a ROCHELLE-3 flow. Recommendations: The patient will continue on aspirin and clopidogrel without any interruption for 6 months in addition to aggressive coronary risks modification, maintaining LDL to less than 70 mg/dL. The findings and the recommendations were discussed with the patient and the family and they were in full understanding and agreem ent. Duration of sedation is 43 minutes.
--- NOTE | 2024-11-03 10:56 | P.CRDCN ---
History of Present Illness History of present illness: HISTORY OF PRESENT ILLNESS: This is a 44-year-old male with a past medical history significant for coronary artery disease with previous stenting, diabetes, hyperlipidemia, and obesity. Braxton hook follows in the office with Dr. Doty. We have been asked to see the patient in consultation for chest pain. Patient examined at the bedside in the emergency room. Patient states that yesterday he started to have chest pain in the middle of his chest. Patient states he was just sitting at home when the pain occurred. He reports he was feeling short of breath as well. He states the pain lasted for a few hours. He states his symptoms do feel similar to when he required stenting in the past. He states he has been having chest pain on and off since May. The patient states he underwent a stress test earlier this month at [facility]. However results are not available at this time. DIAGNOSTICS: - EKG reveals sinus mechanism with no signs of acute ischemia - Chest xray mild bibasilar opacities. Atelectasis favored over infiltrates. - Laboratory data: WBC 8.2. Hemoglobin 16.4. Platelet count 187. Sodium 136. Potassium 3.9. BUN 13. Creatinine 0.93. Troponin negative x 3. - Current home cardiac medications include Lipitor 40 mg daily and Jardiance 10 mg daily - Most recent echocardiogram obtained in February 2023 revealed ejection fraction 55 to 60% with mild mitral and tricuspid regurgitation - Cardiac catheterization history: February 2023 with stenting of the proximal left circumflex REVIEW OF SYSTEMS: At the time of my exam: CONSTITUTIONAL: Denies fever or chills. HEENT: Denies blurred vision, vision changes, or eye pain. Denies hemoptysis CARDIOVASCULAR: Denies chest pain. Denies orthopnea. Denies PND. Denies palpitations RESPIRATORY: Denies shortness of breath. GASTROINTESTINAL: Denies abdominal pain. Denies nausea or vomiting. HEMATOLOGIC: Denies bleeding disorders. GENITOURINARY: Denies any blood in urine. SKIN: Denies pruitis. Denies rash. PHYSICAL EXAM: VITAL SIGNS: Reviewed. GENERAL: Well-developed in no acute distress. HEENT: Head is normocephalic. Pupils are equal, round. Sclerae anicteric. Mucous membranes of the mouth are moist. Neck supple. No JVD or thyromegaly LUNGS: Respirations even and unlabored. Lungs essentially clear to auscultation bilaterally. HEART: Regular rate and rhythm. S1 and S2 heard. ABDOMEN: Soft. Nondistended. Nontender. EXTREMITIES: Normal range of motion. No clubbing or cyanosis. Peripheral puls es intact. No lower extremity edema NEUROLOGIC: Awake and alert. Oriented x 3. ASSESSMENT: Chest pain Coronary artery disease with previous stenting of the proximal circumflex, 02/2023 Diabetes Hyperlipidemia Obesity: BMI 39.9 PLAN: An acute coronary event has been ruled out Resume home cardiac medications Increase atorvastatin to 80 mg daily Add aspirin 81 mg daily Obtain 2D echo to assess cardiac structure and function Patient to undergo cardiac catheterization today with Dr. Carrion as his primary sandwich maker is unavailable Further recommendations pending patient course Nurse practitioner note has been reviewed by physician. Signing provider agrees with the documented findings, assessment, and plan of care documented by DRYWALL HANGER as a scribe. Past Medical History Past Medical History: Diabetes Mellitus, Hypertension History of Any Multi-Drug Resistant Organisms: None Reported Past Surgical History: Back Surgery Additional Past Surgical History / Comment(s): discectomy May 04 2016 Past Psychological History: No Psychological Hx Reported Smoking Status: Never smoker Medications and Allergies Home Medications Medication Instructions Recorded Confirmed Type Atorvastatin [Lipitor] 40 mg PO DAILY 11/03/24 11/03/24 History Empagliflozin [Jardiance] 10 mg PO DAILY 11/03/24 11/03/24 History Allergies Allergy/AdvReac Type Severity Reaction Status Date / Time No Known Allergies Allergy Verified 11/03/24 07:38 Physical Exam Vitals: Vital Signs Temp Pulse Pulse Resp BP BP Pulse Ox 11/03/24 10:12 70 18 127/79 98 11/03/24 07:41 98.1 F 75 18 123/78 95 11/03/24 02:46 77 18 101/68 94 L 11/02/24 21:02 98.2 F 94 22 129/83 95 Intake and Output 11/02/24 11/03/24 11/03/24 22:59 06:59 14:59 Intake Total 230 Balance 230 Intake: IV 230 Other: Weight 122.47 kg Results 11/02/24 21:57 11/02/24 21:57 Cardiac Enzymes 11/02/24 11/02/24 11/03/24 Range/Units 21:57 21:57 00:13 AST 61 H (17-59) U/L Troponin I <0.012 <0.012 (0.000-0.034) ng/mL 11/03/24 Range/Units 04:00 AST (17-59) U/L Troponin I <0.012 (0.000-0.034) ng/mL Coagulation 11/02/24 Range/Units 21:57 PT 10.9 (10.0-12.5) sec APTT 23.4 (22.0-30.0) sec Lipids 11/03/24 Range/Units 04:00 Triglycerides 572.00 H (0.00-149.00) mg/dL Cholesterol 129.00 (0.00-200.00) mg/dL HDL Cholesterol 19.30 L (40.00-60.00) mg/dL Cholesterol/HDL Ratio 6.68 Ratio CBC 11/02/24 Range/Units 21:57 WBC 8.2 (3.8-10.6) k/uL RBC 5.32 (4.30-5.90) m/uL Hgb 16.4 (13.0-17.5) gm/dL Hct 47.7 (39.0-53.0) % Plt Count 187 (150-450) k/uL Comprehensive Metabolic Panel 11/02/24 Range/Units 21:57 Sodium 136 L (137-145) mmol/L Potassium 3.9 (3.5-5.1) mmol/L Chloride 102 (98-107) mmol/L Carbon Dioxide 24 (22-30) mmol/L BUN 13 (9-20) mg/dL Creatinine 0.93 (0.66-1.25) mg/dL Glucose 198 H (74-99) mg/dL Calcium 9.3 (8.4-10.2) mg/dL AST 61 H (17-59) U/L ALT 107 H (4-49) U/L Alkaline Phosphatase 141 H (38-126) U/L Total Protein 6.9 (6.3-8.2) g/dL Albumin 4.3 (3.5-5.0) g/dL Current Medications Generic Name Dose Route Start Last Admin Trade Name Freq PRN Reason Stop Dose Admin Al Hydroxide/Mg Hydroxide 30 ml 11/03/24 10:08 Mag Hydrox/Al Hydrox/Simeth 30 Ml Cup PO Q4HR PRN Heartburn Alprazolam 0.25 mg 11/03/24 07:45 Alprazolam 0.25 Mg Tab PO Q6HR PRN Mild Anxiety Alprazolam 0.5 mg 11/03/24 07:45 Alprazolam 0.5 Mg Tab PO Q6HR PRN Moderate Anxiety Aspirin 81 mg 11/03/24 09:00 11/03/24 07:56 Aspirin 81 Mg PO Not Given DAILY DOLORES Atorvastatin Calcium 80 mg 11/03/24 09:00 11/03/24 08:12 Atorvastatin 80 Mg Tab PO 80 mg DAILY DOLORES Administration Atropine Sulfate 0.5 mg 11/03/24 10:08 Atropine Sulfate 0.1 Mg/Ml 10ml Syringe IV ONCE PRN Symptomatic Bradycardia Clopidogrel Bisulfate 75 mg 11/04/24 09:00 Clopidogrel 75 Mg Tab PO DAILY [facility] Protocol Dapagliflozin 5 mg 11/03/24 09:00 11/03/24 08:10 Dapagliflozin Propanediol 5 Mg Tablet PO 5 mg DAILY DOLORES Administration Heparin Sodium (Porcine) 10, 1,001 mls @ 999 mls/hr 11/04/24 07:00 11/03/24 08:50 000 unit/ Sodium Chloride IRRIGATION 11/04/24 23:00 15 mls ONCE PRN Administration INTRA-OP Heparin Sodium (Porcine) 2,500 250.5 mls @ 250 mls/hr 11/04/24 07:00 11/03/24 08:50 unit/ Sodium Chloride IRRIGATION 11/04/24 23:00 15 mls ONCE PRN Administration INTRA-OP Sodium Chloride 1,000 ml/ IV 1,000 mls @ 122.47 mls/hr 11/03/24 07:45 11/03/24 08:13 Solution IV 122.47 mls/hr .Q8H10M DOLORES Administration 1 ML/KG/HR Sodium Chloride 1,000 ml/ IV 1,000 mls @ 122.47 mls/hr 11/03/24 10:15 Solution IV 11/03/24 13:14 .Q8H10M DOLORES 1 ML/KG/HR Metoprolol Tartrate 25 mg 11/03/24 09:00 11/03/24 08:10 Metoprolol Tartrate 25 Mg Tab PO 25 mg BID DOLORES Administration Miscellaneous Information 1 each 11/03/24 10:08 Rx Info: Iv Contrast Was Given 1 Each Misc MISCELLANE 11/05/24 10:08 DAILY PRN Per Protocol Nitroglycerin 0.4 mg 11/02/24 23:53 Nitroglycerin Sl Tabs 0.4 Mg Tab SUBLINGUAL Q5M PRN Chest Pain Nitroglycerin 0.4 mg 11/03/24 07:45 Nitroglycerin Sl Tabs 0.4 Mg Tab SUBLINGUAL Q5M PRN Chest Pain Nitroglycerin 0.4 mg 11/03/24 10:08 Nitroglycerin Sl Tabs 0.4 Mg Tab SUBLINGUAL Q5M PRN Chest Pain Ondansetron HCl 4 mg 11/03/24 10:08 11/03/24 10:13 Ondansetron 4 Mg/2 Ml Vial IVP 4 mg Q6HR PRN Administration Nausea And Vomiting Pantoprazole Sodium 40 mg 11/03/24 09:00 11/03/24 08:11 Pantoprazole 40 Mg Tablet PO 40 mg DAILY DOLORES Administration Zolpidem Tartrate 5 mg 11/03/24 10:08 Zolpidem 5 Mg Tab PO HS PRN Insomnia Intake and Output 11/02/24 11/03/24 11/03/24 22:59 06:59 14:59 Intake Total 230 Balance 230 Intake: IV 230 Other: Weight 122.47 kg 11/02/24 21:57 11/02/24 21:57
[2024-11-03] MEDS: HYDROcodone/APAP 5-325MG 1 EACH TAB PO STA ×2 (12:31→21:42)
--- NOTE | 2024-11-03 13:15 | P.HPIM ---
History of Present Illness 43-year-old male with known history of cardiac disease and previous stenting came in with complaints of chest pressure-like sensation radiating to the left arm patient was short of breath as well patient is obese. Patient was having on and off chest pain since May. EKG did not show any acute ST-T wave changes chest x-ray showed infiltrates consistent with atelectasis troponins are negative x 3. Patient underwent cardiac catheterization which showed stenosis of miliary mid LAD which was stented. REVIEW OF SYSTEMS: All other systems are negative except those mentioned in the HPI PHYSICAL EXAMINATION: GENERAL: The patient is alert and oriented x3, not in any acute distress. Well developed, well nourished. HEENT: Pupils are round and equally reacting to light. EOMI. No scleral icterus. No conjunctival pallor. Normocephalic, atraumatic. No pharyngeal erythema. No thyromegaly. CARDIOVASCULAR: S1 and S2 present. No murmurs, rubs, or gallops. PULMONARY: Chest is clear to auscultation, no wheezing or crackles. ABDOMEN: Soft, nontender, nondistended, normoactive bowel sounds. No palpable organomegaly. MUSCULOSKELETAL: No joint swelling or deformity. EXTREMITIES: No cyanosis, clubbing, or pedal edema. NEUROLOGICAL: Gross neurological examination did not reveal any focal deficits. SKIN: No rashes. Assessment and plan -Unstable angina: Patient has stenosis of mid LAD which was stented patient is on the dual antiplatelet therapy beta-claus DIAMOND inhibitor which will be continued statin. -Coronary disease -Hyperlipidemia Will obtain hemoglobin A1c to rule out any diabetes mellitus Past Medical History Past Medical History: Diabetes Mellitus, Hypertension History of Any Multi-Drug Resistant Organisms: None Reported Past Surgical History: Back Surgery Additional Past Surgical History / Comment(s): discectomy May 04 2016 Past Psychological History: No Psychological Hx Reported Smoking Status: Never smoker Medications and Allergies Home Medications Medication Instructions Recorded Confirmed Type Atorvastatin [Lipitor] 40 mg PO DAILY 11/03/24 11/03/24 History Empagliflozin [Jardiance] 10 mg PO DAILY 11/03/24 11/03/24 History Allergies Allergy/AdvReac Type Severity Reaction Status Date / Time No Known Allergies Allergy Verified 11/03/24 07:38 Physical Exam Vitals: Vital Signs Temp Pulse Pulse Resp BP BP Pulse Ox 11/03/24 12:15 107/68 91 L 11/03/24 12:00 95/56 93 L 11/03/24 11:45 103/61 95 11/03/24 11:30 106/70 93 L 11/03/24 11:15 97.2 F L 68 17 105/66 95 11/03/24 10:45 66 18 130/71 98 11/03/24 10:30 68 18 128/75 98 11/03/24 10:12 70 18 127/79 98 11/03/24 07:41 98.1 F 75 18 123/78 95 11/03/24 02:46 77 18 101/68 94 L 11/02/24 21:02 98.2 F 94 22 129/83 95 Intake and Output 11/02/24 11/03/24 11/03/24 22:59 06:59 14:59 Intake Total 330 Balance 330 Intake: IV 330 Other: Voiding Method Toilet Urinal Weight 122.47 kg Results CBC & Chem 7: 11/02/24 21:57 11/02/24 21:57 Labs: Abnormal Lab Results - Last 24 Hours (Table) 11/02/24 11/03/24 Range/Units 21:57 04:00 Sodium 136 L (137-145) mmol/L Glucose 198 H (74-99) mg/dL AST 61 H (17-59) U/L ALT 107 H (4-49) U/L Alkaline Phosphatase 141 H (38-126) U/L Triglycerides 572.00 H (0.00-149.00) mg/dL VLDL Cholesterol, Calc 114.40 H (5.00-40.00) mg/dL HDL Cholesterol 19.30 L (40.00-60.00) mg/dL
[2024-11-03] MEDS: oxyCODONE-APAP 5-325MG 1 EACH TAB PO STA (15:15)
[2024-11-04 07:51] VITALS: BP 125/70; PULSE 67; RESP 17; TEMP 97.5
[2024-11-04] MEDS: CLOPIDOGREL 75 MG TAB PO SCH (08:32)
[2024-11-04 10:34] LABS: ALT 120 U/L (10-49); AST 64 U/L (14-35); Albumin/Globulin Ratio 1.82 Ratio (1.60-3.17); Alkaline Phosphatase 151 U/L (41-126); Blood Urea Nitrogen 11.2 mg/dL (9.0-27.0); Calcium 8.7 mg/dL (8.7-10.3); Carbon Dioxide 25.1 mmol/L (21.6-31.8); Chloride 102 mmol/L (96-109); Globulin 2.2 g/dL (1.6-3.3); Glucose 200 mg/dL (70-110); Potassium 4.5 mmol/L (3.5-5.5); Sodium 138 mmol/L (135-145); Total Bilirubin 0.6 mg/dL (0.3-1.2); Total Protein 6.2 g/dL (6.2-8.2)
[2024-11-04] MEDS: HYDROcodone/APAP 5-325MG 1 EACH TAB PO STA (10:49)
[2024-11-04 13:41] VITALS: BMI 39.9
--- NOTE | 2024-11-05 19:17 | P.DS ---
Providers Date of admission: 11/02/24 23:55 Attending physician: Maricel Zamudio MD Consults: 11/02/24 23:53 Consult Physician Routine Consulting Provider: Will Belcher Consult Reason/Comments: chest pain Do you want consulting provider notified?: Yes 11/03/24 10:08 Consult Physician Routine Consulting Provider: [facility] Consult Reason/Comments: Post Interventional patient Do you want consulting provider notified?: Already Contacted Primary care physician: Will Gilliland Hospital Course: Date of service 11/04/2024 Final Diagnosis -Unstable angina: Patient has stenosis of mid LAD which was stented patient is on the dual antiplatelet therapy beta-claus DIAMOND inhibitor which will be continued statin. -Coronary disease -Hyperlipidemia -Hemoglobin A1C 8.0 with diabetes mellitus type 2 on jardiance. Discharge Disposition Stable for discharge home on optimized medical therapy. Hospital Course 43-year-old male with known history of cardiac disease and previous stenting ca me in with complaints of chest pressure-like sensation radiating to the left arm patient was short of breath as well patient is obese. Patient was having on and off chest pain since May. EKG did not show any acute ST-T wave changes chest x-ray showed infiltrates consistent with atelectasis troponins are negative x 3. Patient underwent cardiac catheterization which showed stenosis of miliary mid LAD which was stented. He was monitored overnight. Doing well no further reports of chest pain. Pending echocardiogram which can be done on an outpatient basis as patient wants to discharge home. Was cleared by cardiology. Patient to continue dual antiplatelet therapy with aspirin and plavix, as well as high dose statin therapy. He did have elevated LFTs and recommending to monitor LFTs outpatient this could be fatty liver. His A1C is 8.0 and recommend close follow up with PCP for diet modifications and further recommendations. Please see medication reconciliation for a list of current medications. Thank you for allowing us to participate in the care of this patient. The impression and plan of care has been dictated by Rae Nance, Nurse Practitioner as directed. Dr. Sallie MD I have performed a history and physical examination and medical decision making of this patient, discussed the same with the dictator, and agree with the dictators assessment and plan as written, documented as a scribe. Based on total visit time, I have performed more than 50% of this visit. Patient Condition at Discharge: Stable Plan - Discharge Summary Discharge Rx Participant: No New Discharge Prescriptions: New Aspirin 81 mg PO DAILY #30 tab Atorvastatin [Lipitor] 80 mg PO DAILY #30 tab Metoprolol Tartrate [Lopressor] 25 mg PO BID #60 tab Clopidogrel [Plavix] 75 mg PO DAILY #30 tab Pantoprazole [Protonix] 40 mg PO DAILY #30 tab Continue Empagliflozin [Jardiance] 10 mg PO DAILY Discontinued Atorvastatin [Lipitor] 40 mg PO DAILY Discharge Medication List Empagliflozin [Jardiance] 10 mg PO DAILY 11/03/24 [History] Aspirin 81 mg PO DAILY #30 tab 11/04/24 [Rx] Atorvastatin [Lipitor] 80 mg PO DAILY #30 tab 11/04/24 [Rx] Clopidogrel [Plavix] 75 mg PO DAILY #30 tab 11/04/24 [Rx] Metoprolol Tartrate [Lopressor] 25 mg PO BID #60 tab 11/04/24 [Rx] Pantoprazole [Protonix] 40 mg PO DAILY #30 tab 11/04/24 [Rx] Follow up Appointment(s)/Referral(s): Will Gilliland MD [Primary Care Provider] - 1-2 days Dexter Doty MD [STAFF PHYSICIAN] - 1 Week (Call office Wednesday for a Site check with Dr. Doty in one week) Ambulatory/Diagnostic Orders: Comprehensive Metabolic Panel [LAB.AMB] Time Frame: 3 Days, Location: None Selected Patient Instructions/Handouts: *Surgery [facility] - After Heart Catheterization - Amb ulatory Care Instructions Activity/Diet/Wound Care/Special Instructions: No bending or flexing the right wrist for 5 days. No lifting >5lbs for 5 days with right wrist. You may remove the dressing and leave open to air Keep puncture site clean to avoid infection Do not submerge right wrist in water; tubs, pools, dishes, etc. If you notice any bleeding or swelling at puncture site, apply firm pressure and go to nearest ER Follow up in the office for a site check in one week Discharge/Stand Alone Forms: Work/School Release / Restrict Discharge Disposition: HOME SELF-CARE
== END 2024-11-04 14:07 | disposition home or self-care (01) ==
LOC: EC 20:51 → 6NMEDSUR 23:55
PROVIDERS: ADMIT Internal Medicine; ATTEND Internal Medicine
DX: I25.110 Atherosclerotic heart disease of native coronary artery with unstable angina pectoris (principal); E78.5 Hyperlipidemia, unspecified; E11.9 Type 2 diabetes mellitus without complications; E66.9 Obesity, unspecified; I10 Essential (primary) hypertension; Z68.39 Body mass index [BMI] 39.0-39.9, adult; Z79.899 Other long term (current) drug therapy; Z79.84 Long term (current) use of oral hypoglycemic drugs
CPT/HCPCS: 99285; 36415; 93005; 92978; 93458; 80061; 80053 ×2; 83735; 84484 ×2; 85025; 85610; 85730; 83721; 83036; 71046; G0378 ×3; C9600; C1769 ×3; C1894; C1725 ×2; C1753; C1874; C1887; J2250; J1644 ×3; J2405; J2003; Q9967; J3010; J2305